=== PATIENT | female | born 1970 | race Caucasian/White ===

== ENCOUNTER → 2016-09-06 | Outpatient (CLI) | payer MEDICARE, OTHER ==
[2016-09-06 11:52] LABS: Anion Gap 12 mmol/L; Blood Urea Nitrogen 15 mg/dL (7-17); Carbon Dioxide 25 mmol/L (22-30); Chloride 107 mmol/L (98-107); Glucose 88 mg/dL (74-99); Non-African American GFR(MDRD) >60 (>60 ml/min/1.73 sqM); Potassium 4.4 mmol/L (3.5-5.1); Sodium 144 mmol/L (137-145)
[2016-09-06 11:54] LABS: Rheumatoid Factor, Qnt <9 IU/mL (<12)
[2016-09-07 12:58] LABS: HLA B27 NEGATIVE; HLA B27 Comment SEEBELOW
== END | disposition home or self-care (01) ==
LOC: LABWHC1 11:07
PROVIDERS: ATTEND Psychiatry & Neurology Neurology
DX: M25.50 Pain in unspecified joint (principal); M79.1 Myalgia; G25.81 Restless legs syndrome
CPT/HCPCS: 36415; 80048; 82728; 85652; 86038; 86431; 86812

== ENCOUNTER → 2017-01-31 | Outpatient (CLI) | payer MEDICARE ==
[2017-01-31 08:21] LABS: Basophils % (A) 1 %; CH 32.6; CHCM 34.8; Eosinophils # (A) 0.2 k/uL (0-0.7); Eosinophils % (A) 3 %; HCT 38.7 % (34.0-46.0); HDW 2.75; HGB 13.1 gm/dL (11.4-16.0); Luc # (Auto) 0.18; Luc % (Auto) 3; Lymphocytes # (A) 2.1 k/uL (1.0-4.8); Lymphocytes % (A) 32 %; MCH 31.9 pg (25.0-35.0); MCHC 33.9 g/dL (31.0-37.0); MCV 94.3 fL (80.0-100.0); Mean Platelet Volume 7.4; Monocytes # (A) 0.4 k/uL (0-1.0); Monocytes % (A) 7 %; Neutrophils # (A) 3.6 k/uL (1.3-7.7); Neutrophils % (A) 55 %; RDW 14.6 % (11.5-15.5); WBC 6.5 k/uL (3.8-10.6)
[2017-01-31 09:10] LABS: AST 27 U/L (14-36); Calcium 9.2 mg/dL (8.4-10.2); Chloride 106 mmol/L (98-107); Non-African American GFR(MDRD) >60 (>60 ml/min/1.73 sqM); Sodium 141 mmol/L (137-145); Total Bilirubin 0.3 mg/dL (0.2-1.3); Total Protein 6.8 g/dL (6.3-8.2)
[2017-01-31 09:16] LABS: ALT 42 U/L (9-52); Alkaline Phosphatase 76 U/L (38-126); Anion Gap 9 mmol/L; Blood Urea Nitrogen 10 mg/dL (7-17); Carbon Dioxide 26 mmol/L (22-30); Glucose 96 mg/dL (74-99)
[2017-01-31 10:01] LABS: Vitamin B12 923 pg/mL (239-931)
[2017-01-31 15:28] LABS: Estradiol <11.8 pg/mL
== END | disposition home or self-care (01) ==
LOC: LABWHC1 08:02
PROVIDERS: ATTEND Internal Medicine Endocrinology, Diabetes & Metabolism
DX: E55.9 Vitamin D deficiency, unspecified (principal); R53.83 Other fatigue; R41.3 Other amnesia; D35.2 Benign neoplasm of pituitary gland
CPT/HCPCS: 36415; 80053; 82306; 82607; 82670; 83001; 83002; 84146; 84403; 84439; 84443; 84481; 85025

== ENCOUNTER → 2017-06-06 | Outpatient (CLI) | payer MEDICARE ==
[2017-06-06 10:29] LABS: T4, Free (Free Thyroxine) 0.96 ng/dL (0.78-2.19)
== END | disposition home or self-care (01) ==
LOC: LABWHC1 09:26
PROVIDERS: ATTEND Internal Medicine Endocrinology, Diabetes & Metabolism
DX: D35.2 Benign neoplasm of pituitary gland (principal)
CPT/HCPCS: 36415; 84439; 84443; 84481

== ENCOUNTER → 2017-08-09 | Outpatient (CLI) | payer MEDICARE, OTHER ==
[2017-08-09 13:34] LABS: Blood Urea Nitrogen 15 mg/dL (7-17)
--- NOTE | 2017-08-09 14:57 | MR ---
EXAMINATION TYPE: MR lumbar spine wo con DATE OF EXAM: 08/09/2017 2:38 PM COMPARISON: 11/25/2014 HISTORY: Low back pain Multiplanar, MultiSpin echo imaging of the lumbar spine was performed. L1-L2: Normal disc appearance without desiccation. No herniation, protrusion or disc bulging. No ca nal stenosis is present. Foramina are patent bilaterally. L2-L3: Normal disc appearance without desiccation. No herniation, protrusion or disc bulging. No ca nal stenosis is present. Foramina are patent bilaterally. L3-L4: Normal disc appearance without desiccation. No herniation, protrusion or disc bulging. No ca nal stenosis is present. Foramina are patent bilaterally. L4-L5: Mild degenerative disc disease with decreased signal and loss of height noted of the L4-5 disc . Mild posterior disc bulge mildly effaces the ventral thecal sac. No evidence for central stenosis. Suspect left lateral recess stenosis. Grade 1 anterolisthesis L4 and L5 measuring 3 mm. Facet joint a rthropathy. L5-S1: Mild disc desiccation. Posterocentral disc bulge. No disc herniation or central stenosis. No lateral recess stenosis. Foramina are patent. Lumbar segments are intact. No paraspinal masses are identified. Conus medullaris has a normal appe arance. IMPRESSION: 1. Degenerative disc disease as discussed. 2. Disc bulging L4-5 and L5-S1. Suspect left lateral recess stenosis at L4-5. 3. Grade 1 anterolisthesis L4 and L5 represents a new finding.
--- NOTE | 2017-08-09 15:48 | MR ---
EXAMINATION TYPE: MR brain wo/w con DATE OF EXAM: 08/09/2017 COMPARISON: Prior MRI brain March 11, 2016. HISTORY: R90.82 White matter changes TECHNIQUE: Multiplanar, multisequence images of the brain and brainstem is performed without and with IV contras t, utilizing 7 mL intravenous Gadavist gadolinium contrast is administered intravenously. Demyelinat ing disease protocol with additional Sagittal Flair sequence performed. FINDINGS: Exam is noted suboptimal due to motion artifact degradation. T2 Lesions Present : Yes Approximate Number of Lesions: Approximately 10 scattered small Locations Identified : Scattered small Size of Reference Lesion(s): 1. 0.5 cm x 0.4 cm x 0.4 cm on axial image 15 and sagittal image 11 left frontal subcortical lesion stable Enhancing Lesion(s) Present: No Change from Prior: Stable Diffusion weighted images demonstrate no evidence of a recent infarct or other diffusion abnormality. There is no worrisome extra-axial fluid collection. The ventricular system and cisternal spaces ar e normal in size and appearance. The brain volume is age appropriate. Midline structures demonstrate normal morphology. The craniocervical junction appears within normal limits. Post contrast images demonstrate no abnormal enhancement. The dural venous sinuses appear pa tent. The visualized sinuses are clear and the globes are intact. IMPRESSION: Mild nonspecific white matter changes redemonstrated. No significant interval change. No new or enhancing lesions are seen.
== END | disposition home or self-care (01) ==
LOC: RADMRIMAIN 13:00
PROVIDERS: ATTEND Psychiatry & Neurology Neurology
DX: M51.27 Other intervertebral disc displacement, lumbosacral region (principal); M51.36 Other intervertebral disc degeneration, lumbar region; M43.16 Spondylolisthesis, lumbar region; R90.82 White matter disease, unspecified; Z88.5 Allergy status to narcotic agent
CPT/HCPCS: 82565; 84520; 70553; 72148; 36415; A9581

== ENCOUNTER → 2017-09-27 | Outpatient (CLI) | payer MEDICARE, OTHER | END | disposition home or self-care (01) | LOC: LABWHC1 09:08 | PROVIDERS: ATTEND Nurse Practitioner Acute Care | DX: I49.9 Cardiac arrhythmia, unspecified (principal) | CPT/HCPCS: 93005 ==

== ENCOUNTER → 2018-04-18 | Outpatient (CLI) | payer MEDICARE, OTHER ==
--- NOTE | 2018-04-18 08:53 | US ---
EXAMINATION TYPE: US abdomen complete DATE OF EXAM: 04/18/2018 COMPARISON: US gallbladder 06/04/2014, CT abdomen pelvis 06/04/2014 CLINICAL HISTORY: R14.0 Bloating, K21.9 GERD. bloating, epigastric pain EXAM MEASUREMENTS: Liver Length: 15.4 cm Gallbladder Wall: 0.2 cm CBD: 0.4 cm Spleen: 9.0 cm Right Kidney: 11.5 x 5.1 x 3.9 cm Left Kidney: 10.7 x 4.8 x 5.0 cm Pancreas: wnl Liver: oval, hypoechoic, solid, focal mass in left lobe = 3.7 x 2.8 x 3.2cm with minimal internal va scularity and as previously seen on CT and US; liver shows somewhat coarse echotexture similar to rolando or exam Gallbladder: wnl Evidence for sonographic Bzazi's sign: no CBD: wnl Spleen: wnl Right Kidney: wnl Left Kidney: wnl Upper IVC: wnl Abd Aorta: size is wnl; intimal wall thickening is noted distally Cortical medullary differentiation maintained within the kidneys. There is no ascites. There may be u nderlying hepatic steatosis. Liver lesion thought likely to represent hemangioma. IMPRESSION: Stable left lobe liver lesion.
== END | disposition home or self-care (01) ==
LOC: RADUSWWP 06:59
PROVIDERS: ATTEND Family Medicine
DX: K76.9 Liver disease, unspecified (principal)
CPT/HCPCS: 76700

== ENCOUNTER → 2018-07-04 | Outpatient (CLI) | payer MEDICARE, OTHER | END | disposition home or self-care (01) | LOC: LABWHC1 09:03 | PROVIDERS: ATTEND Nurse Practitioner Acute Care | DX: Z01.812 Encounter for preprocedural laboratory examination (principal) | CPT/HCPCS: 36415; 82565; 84520 ==

== ENCOUNTER → 2018-07-13 | Outpatient (CLI) | payer MEDICARE, OTHER ==
--- NOTE | 2018-07-13 13:02 | MR ---
EXAMINATION TYPE: MR brain wo/w con DATE OF EXAM: 07/13/2018 COMPARISON: MRI brain August 09, 2017 HISTORY: White matter changes TECHNIQUE: Multiplanar, multisequence images of the brain and brainstem is performed without and with IV contras t, utilizing 7 mL intravenous Gadavist gadolinium contrast is administered intravenously. Demyelinat ing disease protocol with additional Sagittal Flair sequence performed. FINDINGS: T2 Lesions Present : Yes Approximate Number of Lesions: Approximately 15-20 small lesions Locations Identified : Scattered Size of Reference Lesion(s): 1. 6 x 4 x 4 mm lesion axial image 16 and sagittal image 14 inferior left frontal deep white matter s lightly more prominent in appearance. Enhancing Lesion(s) Present: No Change from Prior: Increase in number Diffusion weighted images demonstrate no evidence of a recent infarct or other diffusion abnormality. There is no worrisome extra-axial fluid collection. The ventricular system and cisternal spaces ar e normal in size and appearance. The brain volume is age appropriate. Midline structures demonstrate normal morphology. The craniocervical junction appears within normal limits. Post contrast images demonstrate no abnormal enhancement. The dural venous sinuses appear pa tent. The visualized sinuses are clear and the globes are intact. IMPRESSION: Mild to moderate nonspecific white matter changes appear to have show interval progressio n from recent MRI in size and number. No enhancing lesions are evident.
== END ==
LOC: RADMRIMAIN 11:29
PROVIDERS: ATTEND Psychiatry & Neurology Neurology
DX: R90.89 Other abnormal findings on diagnostic imaging of central nervous system (principal)
CPT/HCPCS: 70553

== ENCOUNTER → 2018-07-13 | Outpatient (CLI) | payer MEDICARE, OTHER ==
--- NOTE | 2018-07-13 13:06 | MR ---
EXAMINATION TYPE: MR pituitary wo/w con DATE OF EXAM: 07/13/2018 COMPARISON: Pituitary MRI December 15, 2015 HISTORY: Disorder of pituitary gland, unspecified TECHNIQUE: Multiplanar, multisequence images of the pituitary gland is performed without and with IV contrast, u tilizing 7 mL intravenous Gadavist . FINDINGS: Pituitary gland is normal in size within sella turcica. Pituitary stalk redemonstrates norm al enhancement in the midline suprasellar level. There is persistent round area of nonenhancement ant erior aspect of the pituitary gland with some T1 and T2 hyperintensity measuring 5 mm AP diameter by 4 mm craniocaudal diameter by 4 mm transversely sagittal image 10 and coronal image 8 not significant ly changed in size or appearance from prior MRI. Suprasellar cistern is maintained. Optic chiasm is n ot effaced. IMPRESSION: Stable 4 mm area of nonenhancement could reflect microadenoma, Rathke cleft cyst, or smal l teratoma/lipoma. No significant change from prior pituitary MRI.
== END | disposition home or self-care (01) ==
LOC: RADMRIMAIN 11:26
DX: E23.7 Disorder of pituitary gland, unspecified (principal)
CPT/HCPCS: 70553; A9585

== ENCOUNTER → 2019-06-18 | Outpatient (CLI) | payer MEDICARE, OTHER ==
[2019-06-18 09:29] LABS: Basophils % (A) 1 %; Eosinophils # (A) 0.2 k/uL (0-0.7); Eosinophils % (A) 3 %; HCT 37.8 % (34.0-46.0); HGB 12.6 gm/dL (11.4-16.0); Lymphocytes # (A) 1.4 k/uL (1.0-4.8); Lymphocytes % (A) 27 %; MCHC 33.2 g/dL (31.0-37.0); MCV 93.4 fL (80.0-100.0); Mean Platelet Volume 7.1; Monocytes # (A) 0.2 k/uL (0-1.0); Monocytes % (A) 5 %; Neutrophils # (A) 3.3 k/uL (1.3-7.7); Neutrophils % (A) 63 %; Platelet Count 361 k/uL (150-450); RBC 4.05 m/uL (3.80-5.40); RDW 13.9 % (11.5-15.5); WBC 5.2 k/uL (3.8-10.6)
[2019-06-18 11:45] LABS: Erythrocyte Sedimentation Rate 8 mm/hr (0-20)
[2019-06-18 17:31] LABS: Prolactin 6.3 ng/mL (2.8-29.2)
[2019-06-18 17:41] LABS: ALT 18 U/L (8-44); AST 18 U/L (13-35); African American GFR (CKD) 119.6 (60.0-200.0); Albumin/Globulin Ratio 2.87 (1.60-3.17); Alkaline Phosphatase 73 U/L (41-126); BUN/Creat Ratio 17.14 Ratio (12.00-20.00); C Reactive Protein <0.4 mg/dL (0.0-0.8); Calcium 8.7 mg/dL (8.7-10.3); Carbon Dioxide 24.4 mmol/L (21.6-31.8); Chloride 110 mmol/L (96-109); Creatine Kinase 142 U/L (26-186); Globulin 1.5 g/dL (1.6-3.3); Glucose 164 mg/dL (70-110); Non-African American GFR(CKD) 103.2 (60.0-200.0); Potassium 4.3 mmol/L (3.5-5.5); Rheumatoid Factor, Qnt 7 IU/mL (0-15); Sodium 140 mmol/L (135-145); Total Bilirubin 0.1 mg/dL (0.3-1.2); Total Protein 5.8 g/dL (6.2-8.2)
== END | disposition home or self-care (01) ==
LOC: LABWHC1 09:03
PROVIDERS: ATTEND Internal Medicine Endocrinology, Diabetes & Metabolism
DX: D35.2 Benign neoplasm of pituitary gland (principal); R51 Headache
CPT/HCPCS: 36415; 80053; 82024; 82085; 82533; 82550; 84146; 84439; 84443; 85025; 85652; 86038; 86140; 86431

== ENCOUNTER → 2021-03-18 | Outpatient (CLI) | payer MEDICARE ==
[2021-03-19 04:53] LABS: Prolactin 6.8 ng/mL (2.800-29.200); T4, Free (Free Thyroxine) 0.92 ng/dL (0.800-1.800)
== END | disposition home or self-care (01) ==
LOC: LABWHC1 11:55
PROVIDERS: ATTEND Internal Medicine Endocrinology, Diabetes & Metabolism
DX: D35.2 Benign neoplasm of pituitary gland (principal)
CPT/HCPCS: 36415; 82024; 82533; 84146; 84439; 84443

== ENCOUNTER 2021-03-31 08:31 | Observation (INO) | payer MEDICARE ==
[2021-03-31] MEDS ORDERED: SODIUM CHLORIDE 0.9% 1,000 ML IV STA (08:35)
[2021-03-31] MEDS ORDERED: SODIUM CHLORIDE 0.9% 500 ML 500 ML IV STA (08:35)
[2021-03-31 09:05] LABS: Basophils % (A) 0 %; Eosinophils # (A) 0.1 k/uL (0-0.7); Eosinophils % (A) 1 %; HCT 27.6 % (34.0-46.0); HGB 9.5 gm/dL (11.4-16.0); Lymphocytes # (A) 1.8 k/uL (1.0-4.8); Lymphocytes % (A) 20 %; MCH 32.8 pg (25.0-35.0); MCHC 34.3 g/dL (31.0-37.0); MCV 95.4 fL (80.0-100.0); Mean Platelet Volume 7.2; Monocytes # (A) 0.3 k/uL (0-1.0); Monocytes % (A) 4 %; Neutrophils # (A) 6.8 k/uL (1.3-7.7); Neutrophils % (A) 74 %; Platelet Count 382 k/uL (150-450); RDW 13.7 % (11.5-15.5); WBC 9.1 k/uL (3.8-10.6)
--- NOTE | 2021-03-31 09:14 | ED ---
General Adult HPI - General Chief complaint: GI Bleed Stated complaint: Abd pain Time Seen by Provider: 03/31/21 08:35 Source: patient, EMS, RN notes reviewed, old records reviewed Mode of arrival: EMS - History of Present Illness Initial comments: This is a 50-year-old female who states at 2:00 this morning she got up she was very lightheaded and felt like she was going to pass out and fell but did not get hurt. Patient states she did vomit up some dark brown emesis. Patient also states she's been having black stools. Patient states she was very lightheaded today so she called EMS. When EMS arrived her blood pressure was a little low and she was lightheaded. Patient denies chest pain patient states she was having some difficulty breathing when she was up but not lying in bed. Patient states she's also extremely cold. Patient denies any abdominal pain patient d enies any chest pain. - Related Data Home Medications Medication Instructions Recorded Confirmed Baclofen [Lioresal] 10 mg PO BID 06/04/14 06/04/14 Citalopram Hydrobromide 40 mg PO DAILY 06/04/14 06/04/14 [Citalopram HBr] Gabapentin 800 mg PO TID 06/04/14 06/04/14 Hydrocodone/Acetaminophen [[place] 1 each PO TID 06/04/14 06/04/14 10-325] Meloxicam 15 mg PO DAILY 06/04/14 06/04/14 traMADol HCl [Ultram] 50 mg PO TID 06/04/14 06/04/14 Previous Rx's Medication Instructions Recorded Pantoprazole Sodium [Protonix] 20 mg PO BID #30 tab 06/04/14 Allergies Allergy/AdvReac Type Severity Reaction Status Date / Time methadone Allergy Rash/Hives Verified 06/04/14 19:15 Review of Systems ROS Statement: Those systems with pertinent positive or pertinent negative responses have been documented in the HPI. ROS Other: All systems not noted in ROS Statement are negative. Past Medical History Past Medical History: Fibromyalgia, Hypertension Additional Past Medical History / Comment(s): back pain, glaucoma History of Any Multi-Drug Resistant Organisms: None Reported Additional Past Surgical History / Comment(s): hip surgery Past Psychological History: Anxiety, Depression Smoking Status: Current every day smoker Past Alcohol Use History: None Reported Past Drug Use History: None Reported General Exam - General Exam Comments Initial Comments: GENERAL: Patient is well-developed and well-nourished. Patient is nontoxic and well- hydrated and is in mild distress. ENT: Neck is soft and supple. No significant lymphadenopathy is noted. Oropharynx is clear. Moist mucous membranes. Neck has full range of motion without elic iting any pain. EYES: The sclera were anicteric and conjunctiva were pink and moist. Extraocular movements were intact and pupils were equal round and reactive to light. Eyelids were unremarkable. PULMONARY: Unlabored respirations. Good breath sounds bilaterally. No audible rales rhonchi or wheezing was noted. CARDIOVASCULAR: There is a regular rate and rhythm without any murmurs gallops or rubs. ABDOMEN: Soft and nontender with normal bowel sounds. SKIN: Skin is pale. Capillary refill is poor. NEUROLOGIC: Patient is alert and oriented x3. Cranial nerves II through XII are grossly intact. Motor and sensory are also intact. Normal speech, volume and content. Symmetrical smile. MUSCULOSKELETAL: Normal extremities with adequate strength and full range of motion. LYMPHATICS: No significant lymphadenopathy is noted PSYCHIATRIC: Normal psychiatric evaluation. Course Vital Signs 03/31/21 08:32 Temperature 98.3 F Pulse Rate 83 Respiratory 24 Rate Blood Pressure 113/63 O2 Sat by Pulse 100 Oximetry Medical Decision Making - Medical Decision Making I spoke with Dr. Mcdonald he agreed to admit the patient admitted the patient wrote admitting orders. I consulted Dr. Lin - Lab Data Result diagrams: 03/31/21 08:44 03/31/21 08:44 Lab Results 03/31/21 03/31/21 03/31/21 Range/Units 08:44 08:44 08:44 WBC 9.1 (3.8-10.6) k/uL RBC 2.90 L (3.80-5.40) m/uL Hgb 9.5 L (11.4-16.0) gm/dL Hct 27.6 L (34.0-46.0) % MCV 95.4 (80.0-100.0) fL MCH 32.8 (25.0-35.0) pg MCHC 34.3 (31.0-37.0) g/dL RDW 13.7 (11.5-15.5) % Plt Count 382 (150-450) k/uL MPV 7.2 Neutrophils % 74 % Lymphocytes % 20 % Monocytes % 4 % Eosinophils % 1 % Basophils % 0 % Neutrophils # 6.8 (1.3-7.7) k/uL Lymphocytes # 1.8 (1.0-4.8) k/uL Monocytes # 0.3 (0-1.0) k/uL Eosinophils # 0.1 (0-0.7) k/uL Basophils # 0.0 (0-0.2) k/uL PT 11.3 (9.0-12.0) sec INR 1.1 (<1.2) APTT 19.3 L (22.0-30.0) sec Sodium 139 (137-145) mmol/L Potassium 4.4 (3.5-5.1) mmol/L Chloride 112 H (98-107) mmol/L Carbon Dioxide 24 (22-30) mmol/L Anion Gap 3 mmol/L BUN 33 H (7-17) mg/dL Creatinine 0.46 L (0.52-1.04) mg/dL Est GFR (CKD-EPI)AfAm >90 (>60 ml/min/1.73 sqM) Est GFR (CKD-EPI)NonAf >90 (>60 ml/min/1.73 sqM) Glucose 131 H (74-99) mg/dL Plasma Lactic Acid Veto (0.7-2.0) mmol/L Calcium 8.5 (8.4-10.2) mg/dL Magnesium 1.8 (1.6-2.3) mg/dL Total Bilirubin 0.4 (0.2-1.3) mg/dL AST 21 (14-36) U/L ALT 18 (4-34) U/L Alkaline Phosphatase 42 (38-126) U/L Troponin I (0.000-0.034) ng/mL Total Protein 5.2 L (6.3-8.2) g/dL Albumin 3.0 L (3.5-5.0) g/dL Lipase 87 (23-300) U/L Blood Type Blood Type Recheck Bld Type Recheck Status Spec Expiration Date 03/31/21 03/31/21 03/31/21 Range/Units 08:44 08:44 08:44 WBC (3.8-10.6) k/uL RBC (3.80-5.40) m/uL Hgb (11.4-16.0) gm/dL Hct (34.0-46.0) % MCV (80.0-100.0) fL MCH (25.0-35.0) pg MCHC (31.0-37.0) g/dL RDW (11.5-15.5) % Plt Count (150-450) k/uL MPV Neutrophils % % Lymphocytes % % Monocytes % % Eosinophils % % Basophils % % Neutrophils # (1.3-7.7) k/uL Lymphocytes # (1.0-4.8) k/uL Monocytes # (0-1.0) k/uL Eosinophils # (0-0.7) k/uL Basophils # (0-0.2) k/uL PT (9.0-12.0) sec INR (<1.2) APTT (22.0-30.0) sec Sodium (137-145) mmol/L Potassium (3.5-5.1) mmol/L Chloride (98-107) mmol/L Carbon Dioxide (22-30) mmol/L Anion Gap mmol/L BUN (7-17) mg/dL Creatinine (0.52-1.04) mg/dL Est GFR (CKD-EPI)AfAm (>60 ml/min/1.73 sqM) Est GFR (CKD-EPI)NonAf (>60 ml/min/1.73 sqM) Glucose (74-99) mg/dL Plasma Lactic Acid Veto 1.2 (0.7-2.0) mmol/L Calcium (8.4-10.2) mg/dL Magnesium (1.6-2.3) mg/dL Total Bilirubin (0.2-1.3) mg/dL AST (14-36) U/L ALT (4-34) U/L Alkaline Phosphatase (38-126) U/L Troponin I <0.012 (0.000-0.034) ng/mL Total Protein (6.3-8.2) g/dL Albumin (3.5-5.0) g/dL Lipase (23-300) U/L Blood Type A Positive Blood Type Recheck A Pos Bld Type Recheck Status No Spec Expiration Date 04/03/20212343 Disposition Clinical Impression: GI bleed Disposition: ADMITTED IP TO THIS HOSP Referrals: Ky Mcdonald DO [Primary Care Provider] - 1-2 days Time of Disposition: 10:12
[2021-03-31 09:28] LABS: ALT 18 U/L (4-34); AST 21 U/L (14-36); African American GFR (CKD) >90 (>60 ml/min/1.73 sqM); Alkaline Phosphatase 42 U/L (38-126); Anion Gap 3 mmol/L; Blood Urea Nitrogen 33 mg/dL (7-17); Calcium 8.5 mg/dL (8.4-10.2); Carbon Dioxide 24 mmol/L (22-30); Chloride 112 mmol/L (98-107); Glucose 131 mg/dL (74-99); Lipase 87 U/L (23-300); Magnesium 1.8 mg/dL (1.6-2.3); Non-African American GFR(CKD) >90 (>60 ml/min/1.73 sqM); Potassium 4.4 mmol/L (3.5-5.1); Sodium 139 mmol/L (137-145); Total Bilirubin 0.4 mg/dL (0.2-1.3); Total Protein 5.2 g/dL (6.3-8.2)
[2021-03-31 09:35] LABS: INR 1.1 (<1.2); Prothrombin Time 11.3 sec (9.0-12.0)
[2021-03-31 09:42] LABS: Partial Thromboplastin Time 19.3 sec (22.0-30.0)
[2021-03-31] MEDS ORDERED: SODIUM CHLORIDE 0.9% 1,000 ML IV ONE (10:12)
--- NOTE | 2021-03-31 13:43 | P.CONS ---
History of Present Illness - Reason for Consult Consult date: 03/31/21 GI bleed, anemia Requesting physician: Jer Mosqueda - Chief Complaint dizziness, coffe ground emesis - History of Present Illness This is a 50-year-old female who presented to the emergency department today after waking up early this morning with some abdominal pain nausea followed by vomiting. Patient a past medical history of anxiety, depression, fibromyalgia, hypertension, chronic pain, and smoker. Patient states she vomited 3-4 times which was dark brown and also states she had diarrhea which began yesterday evening which she states was black. Shunt denies any previous history of GI bleed or peptic ulcer disease. Patient states she has had a previous EGD done by Dr. Slaughter for abdominal bloating following eating. States that she did have some retained food and possible gastritis. She does take meloxicam and Excedrin daily., WBC 9.1 hemoglobin 9.5 hematocrit 27.6 platelet count 382,000, INR 1.1. LFTs unremarkable. Patient has not had any further nausea or vomiting since admission to the emergency room. In states dizziness has subsided and that she's been up to the bathroom with a steady gait. Review of Systems REVIEW OF SYSTEMS: CARDIOPULMONARY: No chest pain or shortness of breath. Gastrointestinal: Abdominal pain this morning none currently followed by nausea with vomiting 3-4 episodes. Patient states she had dark brown emesis and 4-5 loose stools since yesterday which she states was black. GENITOURINARY: No dysuria or hematuria. MUSCULOSKELETAL: Reports normal range of motion., Joint pain. SKIN: No rashes. No jaundice. ENDOCRINE: No chills, fevers. No excessive weight gain or loss. No polydipsia or polyuria. PSYCHIATRIC: Unremarkable. NEUROLOGY: No change in mental status. Denies headache. Had some dizziness this morning. ENT: Vision unremarkable. CONSTITUTIONAL: No recent weight loss. No fever, chills, night sweats. Past Medical History Past Medical History: Fibromyalgia, Hypertension Additional Past Medical History / Comment(s): back pain, glaucoma History of Any Multi-Drug Resistant Organisms: None Reported Additional Past Surgical History / Comment(s): hip surgery Past Psychological History: Anxiety, Depression Smoking Status: Current every day smoker Past Alcohol Use History: None Reported Past Drug Use History: None Reported Medications and Allergies Home Medications Medication Instructions Recorded Confirmed Type Baclofen [Lioresal] 10 mg PO TID 06/04/14 03/31/21 History Citalopram Hydrobromide 40 mg PO DIRECTED@209906/04/14 03/31/21 History [Citalopram HBr] Meloxicam 7.5 mg PO DIRECTED@209906/04/14 03/31/21 History Ascorbic Acid/Elderberry Fruit 1 tab PO DAILY 03/31/21 03/31/21 History [Elderberry-Vit C 50-100 mg Chw] [id number] [id number] 1 tab PO DAILY PRN 03/31/21 03/31/21 History [Excedrin] Atorvastatin Calcium [Lipitor] 10 mg PO HS 03/31/21 03/31/21 History Metoprolol Succinate [Toprol XL] 25 mg PO HS 03/31/21 03/31/21 History Multivitamins, Thera [Multivitamin 1 tab PO DAILY 03/31/21 03/31/21 History (formulary)] Pregabalin [Lyrica] 150 mg PO DIRECTED@03/31/21 03/31/21 History oxyCODONE-APAP 7.5-325MG [Percocet 1 tab PO TID PRN 03/31/21 03/31/21 History 7.5-325 mg] Allergies Allergy/AdvReac Type Severity Reaction Status Date / Time methadone Allergy Rash/Hives Verified 06/04/14 19:15 Physical Exam Vitals: Vital Signs Temp Pulse Resp BP Pulse Ox 03/31/21 12:03 98.8 F 79 20 120/79 100 03/31/21 08:32 98.3 F 83 24 113/63 100 Intake and Output 03/30/21 03/31/21 03/31/21 22:59 06:59 14:59 Other: # Voids 1 Weight 68.039 kg General appearance: The patient is alert, oriented, appears in no acute distress. HET: Head is normocephalic and atraumatic. Conjunctiva pink. Sclera anicteric. Neck: Supple without lymphadenopathy. Trachea midline. Heart: S1 S2. Regular rate and rhythm. Lungs: Clear to auscultation. Abdomen: Soft, nontender, nondistended with bowel sounds. No guarding or rigidity. Skin: No rashes. No jaundice. Extremities: Normal skin color and turgor. No pedal edema. Neurological: No focal deficits. Alert and oriented x3. Results CBC & Chem 7: 03/31/21 08:44 03/31/21 08:44 Labs: Abnormal Lab Results - Last 24 Hours (Table) 03/31/21 03/31/21 03/31/21 Range/Units 08:44 08:44 08:44 RBC 2.90 L (3.80-5.40) m/uL Hgb 9.5 L (11.4-16.0) gm/dL Hct 27.6 L (34.0-46.0) % APTT 19.3 L (22.0-30.0) sec Chloride 112 H (98-107) mmol/L BUN 33 H (7-17) mg/dL Creatinine 0.46 L (0.52-1.04) mg/dL Glucose 131 H (74-99) mg/dL Total Protein 5.2 L (6.3-8.2) g/dL Albumin 3.0 L (3.5-5.0) g/dL Assessment and Plan (1) GI bleed Narrative/Plan: A 50-year-old female who presented to the hospital with complaints of dizziness following 3-4 episodes of nausea and vomiting as well as fortified episodes of diarrhea. Patient states diarrhea was black and her emesis was a dark brown. She was noted to have a hemoglobin of 9.5 on admission with no previous history of anemia. Patient denies any previous history of peptic ulcer disease or GI bl eed. She's not on any anticoagulation however she does take meloxicam as well as Excedrin daily. Patient has a history of fibromyalgia chronic pain syndrome as well as previous history of abdominal pain and bloating. Patient has undergone EGD in the past with Dr. Carter 3-4 years ago which she states was significant for some mild gastritis and some retained food. She denies any frequent acid reflux or heartburn. Plan is for EGD tomorrow. Possible etiologies include gastritis, esophagitis, peptic ulcer disease or other possible etiologies. Current Visit: Yes Status: Acute Code(s): K92.2 - GASTROINTESTINAL HEMO RRHAGE, UNSPECIFIED SNOMED Code(s): 06568569 (2) Anemia Current Visit: Yes Status: Acute Code(s): D64.9 - ANEMIA, UNSPECIFIED SNOMED Code(s): 532541402 Plan: 1. Continue symptomatic and supportive care 2. Patient may have clear liquid diet, nothing by mouth after midnight 3. Protonix 40 mg IV twice a day 4. Hold NSAIDs 5. Will proceed with EGD tomorrow. Procedure discussed with patient including risks and benefits, patient willing to proceed. 6. Daily CBC, transfuse for hemoglobin less than 7 Thank you for this consultation, we will continue to follow. Dr. Janki Lin I agree with the dictator's note, documented as a scribe by Latisha Kohli.
[2021-03-31] MEDS: PANTOPRAZOLE 40 MG/10 ML VIAL IVP SCH ×2 (14:14→20:30)
[2021-03-31 14:32] LABS: Basophils % (A) 0 %; Eosinophils % (A) 0 %; HCT 23.7 % (34.0-46.0); Lymphocytes # (A) 1.9 k/uL (1.0-4.8); Lymphocytes % (A) 17 %; MCH 32.1 pg (25.0-35.0); MCHC 33.6 g/dL (31.0-37.0); MCV 95.6 fL (80.0-100.0); Mean Platelet Volume 7.3; Monocytes # (A) 0.3 k/uL (0-1.0); Monocytes % (A) 3 %; Neutrophils # (A) 9.1 k/uL (1.3-7.7); Neutrophils % (A) 79 %; Platelet Count 329 k/uL (150-450); RBC 2.48 m/uL (3.80-5.40); RDW 13.7 % (11.5-15.5); WBC 11.5 k/uL (3.8-10.6)
[2021-03-31] MEDS ORDERED: ASPIRIN-ACET-CAFF 250-250-65MG 1 EACH TAB PO PRN (19:32)
[2021-03-31] MEDS: oxyCODONE-APAP 7.5-325MG 1 EACH TAB PO PRN (20:31)
[2021-03-31] MEDS: PREGABALIN 75 MG CAP PO SCH (20:31)
[2021-03-31] MEDS: BACLOFEN 10 MG TAB PO SCH (20:32)
[2021-03-31] MEDS ORDERED: ATORVASTATIN 10 MG TAB PO SCH (21:00)
[2021-03-31] MEDS ORDERED: CITALOPRAM HYDROBROMIDE 20 MG TAB PO SCH (21:00)
[2021-03-31] MEDS ORDERED: METOPROLOL SUCCINATE (ER) 25 MG TAB.ER.24H PO SCH (21:00)
[2021-03-31] MEDS ORDERED: MELOXICAM 7.5 MG TAB PO SCH (21:00)
[2021-04-01] MEDS: PANTOPRAZOLE 40 MG/10 ML VIAL IVP SCH (08:54)
[2021-04-01] MEDS: BACLOFEN 10 MG TAB PO SCH (08:56)
[2021-04-01] MEDS ORDERED: NON FORMULARY DRUG (Ascorbic Acid/Elderberry Fruit [Elderberry-Vit C 50-100 Mg Chw] 1 EACH PO SCH (09:00)
[2021-04-01] MEDS ORDERED: MULTIVITAMINS, THERA 1 EACH TAB PO SCH (09:00)
[2021-04-01] MEDS ORDERED: PROPOFOL 10 MG/ML 20 ML VIAL IV ONE (09:00)
[2021-04-01] MEDS ORDERED: IV FLUID CONTINUATION 1,000 ML IV ONE ×2 (09:03)
--- NOTE | 2021-04-01 09:13 | P.PCN ---
Date of Procedure: 04/01/21 Procedure(s) Performed: BRIEF HISTORY: Patient is a 50-year-old, pleasant, female admitted hospital with epigastric pain associated with nausea vomiting and coffee-ground emesis. She also has problems episodes of black tarry stools. Hemoglobin was 9 g/dL. She is scheduled for an upper endoscopy to evaluate further PROCEDURE PERFORMED: Esophagogastroduodenoscopy with biopsy. PREOPERATIVE DIAGNOSIS: Epigastric pain and acute upper GI bleed. IV sedation per anesthesia. PROCEDURE: After informed consent was obtained, the patient was brought into the endoscopy unit. IV sedation was administered by Anesthesia under continuous monitoring. Initially the Olympus GIF-140 video endoscope was inserted into the mouth. Esophagus intubated without any difficulty. It was gradually advanced into the stomach and duodenum and carefully examined. The bulb had mild duodenitis and the second part of the duodenum appeared normal. The scope at this time was withdrawn to the stomach, adequately insufflated with air, and upon careful examination, mucosa of the antrum, had multiple scattered erosions and a 1 cm clean-based antral ulcer with no active bleeding that was biopsied. Rest of the body, cardia and the fundus appeared normal. The scope was then withdrawn into the esophagus. The GE junction was located at 39 cm from the incisors. The esophagus appeared normal. There were no erosions or ulcerations seen and the patient tolerated the procedure well. IMPRESSION: 1. 1 cm clean-based antral ulcer with no active bleeding status post biopsy. 2. Antral erosive gastritis. 2. Mild duodenitis RECOMMENDATIONS: The findings of this examination were discussed with the patient . She was advised to follow with the biopsy results. She will continue on Protonix 40 mg twice daily and avoid NSAIDs. Diet will be advanced as tolerated and she can be discharged home today.
[2021-04-01] MEDS: PREGABALIN 75 MG CAP PO SCH (09:49)
[2021-04-01] MEDS: oxyCODONE-APAP 7.5-325MG 1 EACH TAB PO PRN (09:53)
[2021-04-01 10:33] VITALS: RESP 20
[2021-04-01 10:53] VITALS: BP 103/69; PULSE 88; TEMP 98.7
[2021-04-01 11:42] LABS: HCT 20.8 % (37.2-46.3); HGB 6.9 g/dL (12.0-15.0); MCH 32.4 pg (27.0-32.0); MCHC 33.2 g/dL (32.0-37.0); MCV 97.7 fL (80.0-97.0); Mean Platelet Volume 9.2 fL (9.5-12.2); Platelet Count 275 X 10*3/uL (140-440); RBC 2.13 X 10*6/uL (4.10-5.20); RDW 14.1 % (11.5-14.5); WBC 8.75 X 10*3/uL (4.50-10.00)
--- NOTE | 2021-04-01 16:49 | P.HPIM ---
History of Present Illness H&P Date: 04/01/21 Chief Complaint: Coffee-ground emesis, tarry stools History and Physical and Discharge summary This is a 50-year-old female with past medical history of fibromyalgia, hypert ension, back pain, anxiety, depression, ongoing nicotine dependence, presented to the ER yesterday with abdominal pain, nausea vomiting of coffee-ground emesis earlier that morning, dark tarry stools. Patient takes meloxicam daily and prn Excedrin for migraines. Denies any lightheadedness, dizziness or focal deficits. Denies any chest pain, palpitations or shortness of breath. Afebrile, most recent labs reporting WBC 11.5, hemoglobin 8, platelets 329. BUN 33, creatinine 0.46. Evaluated by GI and patient is NPO,scheduled for EGD this morning. Reports no further nausea vomiting or tarry stools-no further stools since admission. Denies abdominal pain. Denies chest pain, palpitations or shortness of breath. Vital signs stable, maintaining O2 sats in the high 90s on room air. Ambulating in room, tolerating exertion well, denies lightheadedness, dizziness or focal deficits. Review of Systems ROS Statement: Those systems with pertinent positive or pertinent negative responses have been documented in the HPI. ROS Other: All systems not noted in ROS Statement are negative. Past Medical History Past Medical History: Fibromyalgia, Hypertension Additional Past Medical History / Comment(s): back pain, glaucoma History of Any Multi-Drug Resistant Organisms: None Reported Additional Past Surgical History / Comment(s): hip surgery Past Anesthesia/Blood Transfusion Reactions: No Reported Reaction Past Psychological History: Anxiety, Depression Smoking Status: Current every day smoker Past Alcohol Use History: None Reported Past Drug Use History: None Reported - Past Family History Mother Family Medical History: Hyperlipidemia, Hypertension Father Family Medical History: CVA/TIA, Hyperlipidemia, Hypertension Additional Family Medical History / Comment(s): brain aneurysm at age 32 Medications and Allergies Home Medications Medication Instructions Recorded Confirmed Type Baclofen [Lioresal] 10 mg PO TID 06/04/14 03/31/21 History Citalopram Hydrobromide 40 mg PO DIRECTED@2100 06/04/14 03/31/21 History [Citalopram HBr] Ascorbic Acid/Elderberry Fruit 1 tab PO DAILY 03/31/21 03/31/21 History [Elderberry-Vit C 50-100 mg Chw] Swaghen-Ylak-Uwgu [id number] 1 tab PO DAILY PRN 03/31/21 03/31/21 History [Excedrin] Atorvastatin Calcium [Lipitor] 10 mg PO HS 03/31/21 03/31/21 History Metoprolol Succinate [Toprol XL] 25 mg PO HS 03/31/21 03/31/21 History Multivitamins, Thera [Multivitamin 1 tab PO DAILY 03/31/21 03/31/21 History (formulary)] Pregabalin [Lyrica] 150 mg PO DIRECTED@03/31/21 03/31/21 History oxyCODONE-APAP 7.5-325MG [Percocet 1 tab PO TID PRN 03/31/21 03/31/21 History 7.5-325 mg] Pantoprazole Sodium [Protonix] 40 mg PO BID #60 tab 04/01/21 Rx Allergies Allergy/AdvReac Type Severity Reaction Status Date / Time methadone Allergy Rash/Hives Verified 06/04/14 19:15 Physical Exam Vitals: Vital Signs Temp Pulse Resp BP Pulse Ox 04/01/21 10:45 98.7 F 88 20 103/69 97 04/01/21 10:25 98.2 F 84 20 101/64 99 04/01/21 10:10 98.4 F 83 19 125/76 98 04/01/21 09:44 98.1 F 83 20 107/70 98 04/01/21 07:00 98.2 F 80 20 120/75 99 04/01/21 01:54 98.1 F 85 16 106/68 96 03/31/21 19:32 98.5 F 90 137/80 100 03/31/21 17:30 16 03/31/21 17:23 99.1 F 83 16 122/76 100 Intake and Output 04/01/21 04/01/21 04/01/21 06:59 14:59 22:59 Intake Total 200 Balance 200 Intake: IV 200 Other: Voiding Method Toilet # Voids 1 PHYSICAL EXAM: VITAL SIGNS: As above GENERAL: Sitting up in bed, no acute distress HEENT: Conjunctivae normal. eyes normal. NECK: No JVD. No thyroid enlargement. No LNs CARDIOVASCULAR: S1, S2 regular.. No murmur RESPIRATION: Breath sounds diminished in the bases. No rhonchi or crackles. No bronchial breathing. ABDOMEN: Soft, nontender . No guarding. No rigidity, no masses palpable. No ascites, No hepatosplenomegaly.Bowel sounds heard. LEGS: No edema. no swelling PSYCHIATRY: Alert and oriented X3, mood and affect normal. NERVOUS SYSTEM: Cranial N 2-12 grossly normal. Moves all 4 limbs.No focal def icits. Strength and sensation grossly intact. Skin: Warm and dry, no rash Results CBC & Chem 7: 04/01/21 07:24 03/31/21 08:44 Labs: Abnormal Lab Results - Last 24 Hours (Table) 04/01/21 Range/Units 07:24 RBC 2.13 L (4.10-5.20) X 10*6/uL Hgb 6.9 L* (12.0-15.0) g/dL Hct 20.8 L (37.2-46.3) % MCV 97.7 H (80.0-97.0) fL MCH 32.4 H (27.0-32.0) pg MPV 9.2 L (9.5-12.2) fL Thrombosis Risk Factor Assmnt - Choose All That Apply Each Factor Represents 1 point: Age 41-60 years, Obesity (BMI >25) Other Risk Factors: No Thrombosis Risk Factor Assessment Total Risk Factor Score: 2 Thrombosis Risk Factor Assessment Level: Low Risk Assessment and Plan Assessment: Acute GI bleed with blood loss anemia. Status post EGD reporting 1 cm clean- based antral ulcer with no active bleeding status post biopsy, antral erosive gastritis, mild duodenitis. Fibromyalgia Hypertension Glaucoma Ongoing nicotine dependence Anxiety Depression Plan: Continue on current medication regime ,monitoring and symptomatic treatm ent. Patient has been cleared for discharge by GI, placed on Protonix 40 twice daily, avoid NSAIDs-reinforced. Repeat CBC outpatient with results to PCP. Smoking sensation reinforced. Patient will be discharged home today in a stable condition with guarded prognosis. Discharge Medication List Baclofen [Lioresal] 10 mg PO TID 06/04/14 [History] Citalopram Hydrobromide [Citalopram HBr] 40 mg PO DIRECTED@2100 06/04/14 [History] Ascorbic Acid/Elderberry Fruit [Elderberry-Vit C 50-100 mg Chw] 1 tab PO DAILY 11/16/21 [History] Atorvastatin Calcium [Lipitor] 10 mg PO HS 03/31/21 [History] Metoprolol Succinate [Toprol XL] 25 mg PO HS 03/31/21 [History] Multivitamins, Thera [Multivitamin (formulary)] 1 tab PO DAILY 03/31/21 [History] Pregabalin [Lyrica] 150 mg PO DIRECTED@03/31/21 [History] oxyCODONE-APAP 7.5-325MG [Percocet 7.5-325 mg] 1 tab PO TID PRN 03/31/21 [History] Pantoprazole Sodium [Protonix] 40 mg PO BID #60 tab 04/01/21 [Rx] The impression and plan of care has been dictated as directed. : I performed a history and examination of this patient, discussed the same with the dictator. I agree with the dictator's note ,documented as a scribe. Any additional findings or plans will be noted.
== END 2021-04-01 11:51 | disposition home or self-care (01) ==
LOC: EC 08:31 → 6NMEDSUR 10:12
PROVIDERS: ADMIT Family Medicine; ATTEND Family Medicine
DX: K25.4 Chronic or unspecified gastric ulcer with hemorrhage (principal); K29.51 Unspecified chronic gastritis with bleeding; K29.81 Duodenitis with bleeding; D62 Acute posthemorrhagic anemia; Z20.822 Contact with and (suspected) exposure to COVID-19; M79.7 Fibromyalgia; I10 Essential (primary) hypertension; G89.4 Chronic pain syndrome; M54.9 Dorsalgia, unspecified; F32.A Depression, unspecified; H40.9 Unspecified glaucoma; F41.9 Anxiety disorder, unspecified; F17.200 Nicotine dependence, unspecified, uncomplicated; E66.9 Obesity, unspecified; Z68.27 Body mass index [BMI] 27.0-27.9, adult; Z71.6 Tobacco abuse counseling; Z79.899 Other long term (current) drug therapy; Z79.1 Long term (current) use of non-steroidal anti-inflammatories (NSAID); Z79.82 Long term (current) use of aspirin; Z88.5 Allergy status to narcotic agent; Z86.69 Personal history of other diseases of the nervous system and sense organs; Z82.49 Family history of ischemic heart disease and other diseases of the circulatory system; Z82.3 Family history of stroke
CPT/HCPCS: 43239; 99285; 96376 ×2; 96361 ×3; 96374; 36415; 86900; 86901; 88305; 80053; 83605; 83690; 83735; 84484; 85025; 85027; 85610; 85730; 86850; 87635; G0378 ×2; J2704; C9113 ×2

== ENCOUNTER → 2021-05-15 | Outpatient (CLI) | payer MEDICARE ==
--- NOTE | 2021-05-18 11:38 | MM ---
Reason for exam: screening (asymptomatic). Last mammogram was performed 5 years and 4 months ago. History: Patient is postmenopausal and had first child at age 33. Physical Findings: A clinical breast exam by your physician is recommended on an annual basis and results should be correlated with mammographic findings. MG 3D Screening Mammo W/Cad Bilateral CC and MLO view(s) were taken. Prior study comparison: January 23, 2016, mammogram, performed at [facility]. January 22, 2014, mammogram, performed at [facility]. There are scattered fibroglandular densities. There are benign appearing round calcifications in the left breast. There is no discrete abnormality. ASSESSMENT: Benign, BI-RAD 2 RECOMMENDATION: Routine screening mammogram of both breasts in 1 year.
== END | disposition home or self-care (01) ==
LOC: RADMAMWWP 10:23
PROVIDERS: ATTEND Obstetrics & Gynecology
DX: Z12.31 Encounter for screening mammogram for malignant neoplasm of breast (principal); Z78.0 Asymptomatic menopausal state
CPT/HCPCS: 77063; 77067

== ENCOUNTER → 2022-04-01 | Outpatient (CLI) | payer MEDICARE ==
--- NOTE | 2022-04-02 21:26 | MR ---
EXAMINATION TYPE: MR lumbar spine wo/w con DATE OF EXAM: 04/01/2022 11:28 AM COMPARISON: CT abdomen pelvis 06/04/2014. CLINICAL INDICATION:Female, 51 years old with history of M54.50 LOW BACK PAIN, UNSPECIFIED; TECHNIQUE: Multi planar, multi sequence imaging was performed utilizing: T1-weighted, T2-weighted, a nd turbo inversion recovery imaging of the lumbar spine. IV Contrast: 7 cc Gadavist. None. FINDINGS: Alignment: The lumbar vertebral bodies have preserved heights , grade 1 anterolisthesis of L4 and L5. Cord: The conus medullaris and the distal spinal cord appear unremarkable with regards to their signa l intensity and morphology. No abnormal postcontrast enhancement. Bones/Discs: Bone marrow signal is grossly maintained. Multilevel degenerative disc disease is noted and most pronounced at the L4-L5 and L5-S1. No abnormal postcontrast enhancement. No significant disc desiccation. L1-L2: No evidence of significant spinal canal stenosis or neural foraminal stenosis. L2-L3: No evidence of significant spinal canal stenosis or neural foraminal stenosis. L3-L4: Disc bulging and facet joint arthropathy result in mild spinal canal and mild bilateral neural foraminal stenosis. L4-L5: Disc uncovering from grade 1 anterolisthesis with bulging and facet joint arthropathy with mil d spinal canal and moderate bilateral neural foraminal stenosis. Small bilateral facet joint effusions are noted at this level. L5-S1: No evidence of significant spinal canal stenosis. Facet joint arthropathy with mild right and moderate left neural foraminal stenosis. Small bilateral facet joint effusions are noted at this leve l. There is associated synovial cyst the largest next to the right L5-S1 facet joint measuring up to 12 mm which is posterior to the spine and posterior to the facet joint. Other findings: None. IMPRESSION: 1. No definitive evidence of disc herniation or significant spinal canal stenosis. 2. Multilevel disc degeneration with associated osteoarthritic changes there is associated facet gerardo nt effusions at L4-L5 and L5-S1 3. No abnormal postcontrast enhancement.
== END | disposition home or self-care (01) ==
LOC: RADMRIMAIN 10:42
PROVIDERS: ATTEND Psychiatry & Neurology Neurology
DX: M51.36 Other intervertebral disc degeneration, lumbar region (principal); M47.816 Spondylosis without myelopathy or radiculopathy, lumbar region; M47.817 Spondylosis without myelopathy or radiculopathy, lumbosacral region; M54.50 Low back pain, unspecified
CPT/HCPCS: 72158

== ENCOUNTER → 2022-04-05 | Outpatient (CLI) | payer MEDICARE ==
--- NOTE | 2022-04-05 10:45 | MR ---
EXAMINATION TYPE: MR pituitary wo/w con DATE OF EXAM: 04/05/2022 COMPARISON: 07/13/2018 HISTORY: Pituitary abnormality, E23.7-253.9 TECHNIQUE: Multiplanar, multisequence images of the pituitary gland is performed without and with IV contrast, u tilizing 7 mL intravenous Gadavist . FINDINGS: Pituitary gland is normal in size within sella turcica. Pituitary stalk redemonstrates norm al enhancement in the midline suprasellar level. There is persistent round area of nonenhancement ant erior aspect of the pituitary gland with some T1 and T2 hyperintensity measuring 3 mm AP diameter by 4 mm craniocaudal diameter by 4 mm transversely not significantly changed in size or appearance from prior MRI. Suprasellar cistern is maintained. Optic chiasm is not effaced. IMPRESSION: 1. Small area of lack of enhancement involving the anterior pituitary gland suggestive of a 3 to 4 mm a pituitary microadenoma unchanged from prior exam
== END | disposition home or self-care (01) ==
LOC: RADMRIMAIN 09:30
PROVIDERS: ATTEND Psychiatry & Neurology Neurology
DX: E23.7 Disorder of pituitary gland, unspecified (principal); M54.50 Low back pain, unspecified; M47.816 Spondylosis without myelopathy or radiculopathy, lumbar region; R90.82 White matter disease, unspecified
CPT/HCPCS: 70553; A9585

== ENCOUNTER → 2022-04-21 | Outpatient (CLI) | payer MEDICARE ==
--- NOTE | 2022-04-21 14:37 | MR ---
EXAMINATION TYPE: MR angio head wo con DATE OF EXAM: 04/21/2022 COMPARISON: Prior MRI brain May 05, 2015 HISTORY: White matter disease, pituitary abnormality. R90.82,E23.7,M54.50,M47.816. TECHNIQUE: Time of flight images focusing on the [place] of [place] were performed without contrast.. 2-D and 3-D postprocessing imaging is performed in MRI scanner. FINDINGS: Dominant left vertebral artery fills the basilar artery. There is a smaller caliber distal right vertebral artery. There is patent right posterior communicating artery filling the right P2 seg ment is hypoplastic right-sided P1 segment. There is hypoplastic left posterior communicating artery. There is no significant focal stenosis or aneurysm in the posterior circulation. Normal variant. Small caliber but patent anterior communicating artery axial image 111. There is no significant focal stenosis or aneurysm in the anterior circulation. IMPRESSION: No aneurysm at the level of the [place].
--- NOTE | 2022-04-21 14:54 | MR ---
EXAMINATION TYPE: MR brain wo/w con DATE OF EXAM: 04/21/2022 COMPARISON: MRI brain July 13, 2018 HISTORY: White matter disease, pituitary abnormality TECHNIQUE: Multiplanar, multisequence images of the brain and brainstem is performed without and with IV contras t, utilizing 7 mL intravenous Gadavist gadolinium contrast is administered intravenously. Demyelinat ing disease protocol with additional Sagittal Flair sequence performed. FINDINGS: T2 Lesions Present : Yes Approximate Number of Lesions: Approximately 15-20 small lesions slightly increased in number from pr ior. Locations Identified : Scattered Size of Reference Lesion(s): 1. 6 x 4 x 10 mm lesion axial image 15 and sagittal image 104 inferior left frontal deep white matter slightly more prominent or larger from most recent prior. Enhancing Lesion(s) Present: No Change from Prior: Increase in number and increase in size of some of the lesions. Diffusion weighted images demonstrate no evidence of a recent infarct or other diffusion abnormality. There is no worrisome extra-axial fluid collection. The ventricular system and cisternal spaces ar e normal in size and appearance. The brain volume is age appropriate. T2 Star weighted images show n o suspicious intraparenchymal blood products. Midline structures demonstrate normal morphology. The craniocervical junction appears within normal limits. Post contrast images demonstrate no abnormal enhancement. The dural venous sinuses appear pa tent. The visualized sinuses are clear and the globes are intact. IMPRESSION: Mild to moderate nonspecific white matter changes appear to continue to show slight inter viral progression in size and number from most recent MRI. No enhancing lesions are evident.
== END | disposition home or self-care (01) ==
LOC: RADMRIMAIN 13:48
PROVIDERS: ATTEND Psychiatry & Neurology Neurology
DX: R90.82 White matter disease, unspecified (principal); E23.7 Disorder of pituitary gland, unspecified; M47.816 Spondylosis without myelopathy or radiculopathy, lumbar region; M54.50 Low back pain, unspecified
CPT/HCPCS: 70544; 70553; A9585

== ENCOUNTER → 2023-08-09 | Outpatient (CLI) | payer MEDICARE ==
--- NOTE | 2023-08-12 18:20 | MM ---
Reason for Exam: Screening (asymptomatic). Last mammogram was performed 2 year(s) and 3 month(s) ago. Patient History: Menarche at age 13. First Full-Term at age 33. Late child-bearing (after 30). Postmenopausal. Risk Values: Ines 5 year model risk: 1.4%. NCI Lifetime model risk: 12.0%. Prior Study Comparison: 01/22/2014 Screening Mammogram, [facility]. 01/23/2016 Screening Mammogram, [facility]. 05/15/2021 Bilateral Screening Mammogram, [facility]. Tissue Density: There are scattered areas of fibroglandular density. Findings: Analyzed By CAD. The pattern is symmetrical. Scattered benign punctate calcifications are present bilaterally. Small spherical calcification is within the left breast. No suspicious groups of microcalcifications, spiculated or lobular masses, architectural distortion or other secondary signs of malignancy are mammographically apparent. Overall Assessment: Benign, BI-RAD 2 Management: Screening Mammogram of both breasts in 1 year. A negative mammogram report should not preclude additional follow up of suspicious palpable abnormalities. Patient should continue monthly self breast exam. A clinical breast exam by your physician is recommended on an annual basis and results should be correlated with mammographic findings. Electronically signed and approved by: Reji Black D.O. Radiologis
== END | disposition home or self-care (01) ==
LOC: RADMAMWWP 13:07
PROVIDERS: ATTEND Family Medicine
DX: Z12.31 Encounter for screening mammogram for malignant neoplasm of breast (principal); Z78.0 Asymptomatic menopausal state
CPT/HCPCS: 77063; 77067

== ENCOUNTER 2024-02-07 11:56 | Inpatient (IN) | payer MEDICARE ==
--- NOTE | 2024-02-07 12:10 | ED ---
Abdominal Pain HPI - General Chief Complaint: Abdominal Pain Stated Complaint: Abdominal Pain Time Seen by Provider: 02/07/24 12:10 Source: patient, RN notes reviewed Mode of arrival: ambulatory Limitations: no limitations - History of Present Illness Initial Comments: This is a 53-year-old female presents emergency department chief complaint of right lower quadrant abdominal pain. States that the pain has been present over the past 4 to 5 days and has stayed in the right lower quadrant. Patient was evaluated at urgent care this morning where they prompted her to report to the emergency department for further evaluation to rule out appendicitis. Patient states that she experienced a fever on Tuesday and has been having bouts of nausea. Endorses mild episodes of diarrhea as well. Denies previous surgical abdominal history. - Related Data Home Medications Medication Instructions Recorded Confirmed Baclofen [Lioresal] 10 mg PO TID PRN 06/04/14 02/07/24 Atorvastatin Calcium [Lipitor] 10 mg PO HS 03/31/21 02/07/24 Metoprolol Succinate [Toprol XL] 25 mg PO HS 03/31/21 02/07/24 Pregabalin [Lyrica] 150 mg PO TID 03/31/21 02/07/24 oxyCODONE-APAP 7.5-325MG [Percocet 1 tab PO BID 03/31/21 02/07/24 7.5-325 mg] Jxeajvo-Yvct-Kmng [id number] 1 tab PO Q4HR PRN 02/07/24 02/07/24 [Excedrin] DULoxetine HCL [Cymbalta] 20 mg PO DAILY 02/07/24 02/07/24 Latanoprost [Latanoprost 0.005%] 1 drop BOTH EYES HS 02/07/24 02/07/24 Losartan [Cozaar] 25 mg PO DAILY 02/07/24 02/07/24 QUEtiapine [SEROquel] 50 mg PO HS PRN 02/07/24 02/07/24 Vitamin C(Unknown Dose) 1 tab PO DAILY 02/07/24 02/07/24 Previous Rx's Medication Instructions Recorded Pantoprazole Sodium [Protonix] 40 mg PO BID #60 tab 04/01/21 Allergies Allergy/AdvReac Type Severity Reaction Status Date / Time methadone Allergy Rash/Hives Verified 02/07/24 16:45 Review of Systems ROS Statement: Those systems with pertinent positive or pertinent negative responses have been documented in the HPI. ROS Other: All systems not noted in ROS Statement are negative. Past Medical History Past Medical History: Fibromyalgia, Hypertension Additional Past Medical History / Comment(s): back pain, glaucoma, Teto Disk Disease History of Any Multi-Drug Resistant Organisms: None Reported Additional Past Surgical History / Comment(s): hip surgery Past Anesthesia/Blood Transfusion Reactions: No Reported Reaction Past Psychological History: Anxiety, Depression Smoking Status: Current every day smoker Past Alcohol Use History: None Reported Past Drug Use History: None Reported - Past Family History Mother Family Medical History: Hyperlipidemia, Hypertension Father Family Medical History: CVA/TIA, Hyperlipidemia, Hypertension Additional Family Medical History / Comment(s): brain aneurysm at age 32 General Exam Limitations: no limitations General appearance: alert, in no apparent distress Head exam: Present: atraumatic, normocephalic, normal inspection ENT exam: Present: normal exam, mucous membranes moist Neck exam: Present: normal inspection. Absent: tenderness, meningismus, lymphadenopathy Respiratory exam: Present: normal lung sounds bilaterally. Absent: respiratory distress, wheezes, rales, rhonchi, stridor Cardiovascular Exam: Present: regular rate, normal rhythm, normal heart sounds. Absent: systolic murmur, diastolic murmur, rubs, gallop, clicks GI/Abdominal exam: Present: soft, tenderness (RLQ), rebound (RLQ), normal bowel sounds. Absent: distended, guarding, rigid Extremities exam: Present: normal inspection, full ROM, normal capillary refill. Absent: tenderness, pedal edema, joint swelling, calf tenderness Back exam: Present: normal inspection Skin exam: Present: warm, dry, intact, normal color. Absent: rash Course Vital Signs 02/07/24 02/07/24 02/07/24 12:00 15:59 16:32 Temperature 98 F 97.7 F Pulse Rate 87 96 Pulse Rate [ 76 Pulse Oximetery ] Respiratory 16 18 16 Rate Blood Pressure 122/73 109/70 Blood Pressure 109/58 [Right Arm] O2 Sat by Pulse 100 97 99 Oximetry Medical Decision Making - Medical Decision Making Was pt. sent in by a medical professional or institution (, PA, MANAGER SOLAR, urgent care, hospital, or fdc...) When possible be specific @ -No Did you speak to anyone other than the patient for history (EMS, parent, family, police, friend...)? What history was obtained from this source @ -No Did you review nursing and triage notes (agree or disagree)? Why? @ -I reviewed and agree with nursing and triage notes Were old charts reviewed (outside hosp., previous admission, EMS record, old EKG, old radiological studies, urgent care reports/EKG's, fdc records)? Report findings @ -No old charts were reviewed Differential Diagnosis (chest pain, altered mental status, abdominal pain women, abdominal pain men, vaginal bleeding, weakness, fever, dyspnea, syncope, headache, dizziness, GI bleed, back pain, seizure, CVA, palpatations, mental health, musculoskeletal)? @ -Differential Abdominal Pain Women: Appendicitis, Cholecystitis, diverticulosis, ischemic bowel, pancreatitis, hepatitis, UTI, gastroenteritis, AAA, incarcerated hernia, bowel obstruction, constipation, inflammatory bowel, hepatitis, peptic ulcer disease, splenic inf arction, perforated viscus, vulvitis, ovarian torsion, PID, kidney stone, placenta abruption, this is not meant to be an all-inclusive list EKG interpreted by me (3pts min.). @ -None X-rays interpreted by me (1pt min.). @ -None done CT interpreted by me (1pt min.). @ -CT of the abdomen pelvis with IV contrast reveals acute appendicitis with surrounding phlegmon and 1 or 2 small abscesses are difficult to exclude with a small amount of free fluid noted as well U/S interpreted by me (1pt. min.). @ -None done What testing was considered but not performed or refused? (CT, X-rays, U/S, labs)? Why? @ -None What meds were considered but not given or refused? Why? @ -None Did you discuss the management of the patient with other professionals (professionals i.e. , PA, MANAGER SOLAR, lab, RT, psych nurse, delinquency prevention social worker, lap winder, teacher, weapons officer naval activity, dependency case manager)? Give summary @ -i spoke with general surgeon consumer affairs director, Dr. Pickens, in regard to the patient's CT findings concerning for a appendicitis with potential small abscess. Patient is excepted for admission with surgical consult on board Was smoking cessation discussed for >3mins.? @ -No Was critical care preformed (if so, how long)? @ -No Were there social determinants of health that impacted care today? How? (Homelessness, low income, unemployed, alcoholism, drug addiction, transportation, low edu. Level, literacy, decrease access to med. care, half-way, rehab)? @ -No Was there de-escalation of care discussed even if they declined (Discuss DNR or withdrawal of care, Hospice)? DNR status @ -No What co-morbidities impacted this encounter? (DM, HTN, Smoking, COPD, CAD, Cancer, CVA, ARF, Chemo, Hep., AIDS, mental health diagnosis, sleep apnea, morbid obesity)? @ -None Was patient admitted / discharged? Hospital course, mention meds given and route, prescriptions, significant lab abnormalities, going to OR and other pertinent info. @ -Admitted. 53-year-old female with right lower quadrant abdominal pain. On evaluation the patient she is afebrile nontachycardic and has right lower quadrant abdominal tenderness to palpation. patient is was evaluated in the waiting room where laboratory studies were ordered in addition to CT imaging. CBC reveals mild leukocytosis of 11.8 and left shift of 9.9, CMP unremarkable CT imaging concerning for acute appendicitis with surrounding phlegmon. Patient will be admitted to general surgery for surgical consult and started on IV antibiotics in addition to antiemetics and pain control. Undiagnosed new problem with uncertain prognosis? @ -No Drug Therapy requiring intensive monitoring for toxicity (Heparin, Nitro, Insulin, Cardizem)? @ -No Were any procedures done? @ -No Diagnosis/symptom? @ -Appendicitis with phlegmon Acute, or Chronic, or Acute on Chronic? @ -acute Uncomplicated (without systemic symptoms) or Complicated (systemic symptoms)? @ -complictaed Side effects of treatment? @ -No Exacerbation, Progression, or Severe Exacerbation? @ -No Poses a threat to life or bodily function? How? (Chest pain, [place], [place], pneumonia, PE, COPD, DKA, ARF, appy, cholecystitis, CVA, Diverticulitis, Homicidal, Suicidal, threat to staff... and all critical care pts) @ -No - Lab Data Result diagrams: 02/07/24 13:13 02/07/24 13:13 Lab Results 02/07/24 02/07/24 02/07/24 Range/Units 13:13 13:13 13:13 WBC 11.8 H (3.8-10.6) k/uL RBC 3.79 L (3.80-5.40) m/uL Hgb 11.5 (11.4-16.0) gm/dL Hct 35.5 (34.0-46.0) % MCV 93.7 (80.0-100.0) fL MCH 30.5 (25.0-35.0) pg MCHC 32.5 (31.0-37.0) g/dL RDW 12.9 (11.5-15.5) % Plt Count 530 H (150-450) k/uL MPV 7.1 Neutrophils % 84 % Lymphocytes % 9 % Monocytes % 5 % Eosinophils % 1 % Basophils % 0 % Neutrophils # 9.9 H (1.3-7.7) k/uL Lymphocytes # 1.0 (1.0-4.8) k/uL Monocytes # 0.6 (0-1.0) k/uL Eosinophils # 0.1 (0-0.7) k/uL Basophils # 0.0 (0-0.2) k/uL Sodium 139 (137-145) mmol/L Potassium 4.0 (3.5-5.1) mmol/L Chloride 103 (98-107) mmol/L Carbon Dioxide 27 (22-30) mmol/L Anion Gap 9 mmol/L BUN 10 (7-17) mg/dL Creatinine 0.46 L (0.52-1.04) mg/dL Est GFR (CKD-EPI)AfAm >90 (>60 ml/min/1.73 sqM) Est GFR (CKD-EPI)NonAf >90 (>60 ml/min/1.73 sqM) Glucose 103 H (74-99) mg/dL Plasma Lactic Acid Veto 1.0 (0.7-2.0) mmol/L Calcium 9.0 (8.4-10.2) mg/dL Total Bilirubin 0.6 (0.2-1.3) mg/dL AST 40 H (14-36) U/L ALT 25 (4-34) U/L Alkaline Phosphatase 88 (38-126) U/L Total Protein 6.4 (6.3-8.2) g/dL Albumin 3.7 (3.5-5.0) g/dL Amylase 32 (30-110) U/L Lipase 46 (23-300) U/L Disposition Clinical Impression: Appendicitis, Acute phlegmonous appendicitis Disposition: ADMITTED IP TO THIS [facility] Condition: Serious Is patient prescribed a controlled substance at d/c from ED?: No Decision to Admit Reason: Admit from EC Decision Date: 02/07/24 Decision Time: 14:51
[2024-02-07 13:35] LABS: Basophils % (A) 0 %; Eosinophils # (A) 0.1 k/uL (0-0.7); Eosinophils % (A) 1 %; HCT 35.5 % (34.0-46.0); HGB 11.5 gm/dL (11.4-16.0); Lymphocytes % (A) 9 %; MCH 30.5 pg (25.0-35.0); MCHC 32.5 g/dL (31.0-37.0); MCV 93.7 fL (80.0-100.0); Mean Platelet Volume 7.1; Monocytes # (A) 0.6 k/uL (0-1.0); Monocytes % (A) 5 %; Neutrophils # (A) 9.9 k/uL (1.3-7.7); Neutrophils % (A) 84 %; Platelet Count 530 k/uL (150-450); RBC 3.79 m/uL (3.80-5.40); RDW 12.9 % (11.5-15.5); WBC 11.8 k/uL (3.8-10.6)
[2024-02-07 13:49] LABS: ALT 25 U/L (4-34); AST 40 U/L (14-36); African American GFR (CKD) >90 (>60 ml/min/1.73 sqM); Albumin 3.7 g/dL (3.5-5.0); Alkaline Phosphatase 88 U/L (38-126); Amylase 32 U/L (30-110); Anion Gap 9 mmol/L; Blood Urea Nitrogen 10 mg/dL (7-17); Carbon Dioxide 27 mmol/L (22-30); Chloride 103 mmol/L (98-107); Glucose 103 mg/dL (74-99); Lipase 46 U/L (23-300); Non-African American GFR(CKD) >90 (>60 ml/min/1.73 sqM); Sodium 139 mmol/L (137-145); Total Bilirubin 0.6 mg/dL (0.2-1.3); Total Protein 6.4 g/dL (6.3-8.2)
--- NOTE | 2024-02-07 14:18 | CT ---
EXAMINATION TYPE: CT abdomen pelvis w con DATE OF EXAM: 02/07/2024 COMPARISON: 06/04/2014 HISTORY: RLQ pain, Fever, Nausea CT DLP: 758.8 mGycm CONTRAST: CT scan of the abdomen and pelvis is performed without Oral Contrast and with IV Contrast, patient in jected with 100 ml mL of Isovue 370. FINDINGS: LUNG BASES-: No visible nodule. No infiltrate. LIVER/GB: No calcified gallstones. 2.9 cm mass in the left hepatic lobe at its periphery with parti al peripheral enhancement on delayed imaging may reflect hemangioma. This could be confirmed with ult rasound. Biliary tree is of normal caliber. PANCREAS: No inflammation. No distinct mass. SPLEEN: No splenic enlargement. No lesion seen. ADRENALS: No nodule. No thickening. KIDNEYS/BLADDER: No hydronephrosis. No nephrolithiasis. No distinct renal mass. Urinary bladder g rossly unremarkable. BOWEL: Extensive inflammatory changes right lower quadrant felt to be secondary to acute appendicitis with small abscess felt to be present measuring 2.3 cm with surrounding phlegmon and small amount of free fluid. GENITAL ORGANS: No gross abnormality. LYMPH NODES: No greater than 1cm abdominal or pelvic lymph nodes are appreciated. AORTA: No significant abnormality. OSSEOUS STRUCTURES: No significant abnormality is seen. OTHER: No significant additional abnormality is seen. IMPRESSION: 1. Findings felt to reflect acute appendicitis with surrounding phlegmon and one or 2 small abscesses difficult to exclude. Small amount of free fluid noted as well. 2. Probable hepatic hemangioma. [facility], , 02/07/2024 2:15 PM
[2024-02-07] MEDS: ONDANSETRON 4 MG/2 ML VIAL IVP STA (14:33)
[2024-02-07] MEDS: MORPHINE SULFATE 4 MG/ML SYRINGE IVP STA (14:33)
[2024-02-07] MEDS ORDERED: NALOXONE 0.4 MG/ML 1 ML VIAL IV PRN (14:51)
[2024-02-07] MEDS: PIPERACILLIN-TAZOBACTAM 3.375 GM in SODIUM CHLORIDE 0.9% 100 ML IVPB STA (15:03)
--- NOTE | 2024-02-07 15:56 | P.GSHP ---
History of Present Illness H&P Date: 02/07/24 53-year-old female presents to the emergency department with complaint of abdominal pain in the right lower quadrant that started over a week ago. Pain has been present and has worsened over that time period. Patient also states that she has had on and off fevers during that time period. On workup, patient is found to have mild leukocytosis with significant left shift. CT of the abdomen and pelvis was performed with concern for appendicitis with phlegmon creation and free fluid. No obvious distinct abscess is noted. - Review of Systems All systems: negative Past Medical History Past Medical History: Fibromyalgia, Hypertension Additional Past Medical History / Comment(s): back pain, glaucoma, Teto Disk Disease History of Any Multi-Drug Resistant Organisms: None Reported Additional Past Surgical History / Comment(s): hip surgery Past Anesthesia/Blood Transfusion Reactions: No Reported Reaction Past Psychological History: Anxiety, Depression Smoking Status: Current every day smoker Past Alcohol Use History: None Reported Past Drug Use History: None Reported - Past Family History Mother Family Medical History: Hyperlipidemia, Hypertension Father Family Medical History: CVA/TIA, Hyperlipidemia, Hypertension Additional Family Medical History / Comment(s): brain aneurysm at age 32 Medications and Allergies Home Medications Medication Instructions Recorded Confirmed Type Baclofen [Lioresal] 10 mg PO TID PRN 06/04/14 02/07/24 History Atorvastatin Calcium [Lipitor] 10 mg PO HS 03/31/21 02/07/24 History Metoprolol Succinate [Toprol XL] 25 mg PO HS 03/31/21 02/07/24 History Pregabalin [Lyrica] 150 mg PO TID 03/31/21 02/07/24 History oxyCODONE-APAP 7.5-325MG [Percocet 1 tab PO BID 03/31/21 02/07/24 History 7.5-325 mg] Pantoprazole Sodium [Protonix] 40 mg PO BID #60 tab 04/01/21 02/07/24 Rx Cdnofdk-Ppae-Dlub [id number] 1 tab PO Q4HR PRN 02/07/24 02/07/24 History [Excedrin] DULoxetine HCL [Cymbalta] 20 mg PO DAILY 02/07/24 02/07/24 History Latanoprost [Latanoprost 0.005%] 1 drop BOTH EYES HS 02/07/24 02/07/24 History Losartan [Cozaar] 25 mg PO DAILY 02/07/24 02/07/24 History QUEtiapine [SEROquel] 50 mg PO HS PRN 02/07/24 02/07/24 History Vitamin C(Unknown Dose) 1 tab PO DAILY 02/07/24 02/07/24 History Allergies Allergy/AdvReac Type Severity Reaction Status Date / Time methadone Allergy Rash/Hives Verified 02/07/24 14:37 Surgical - Exam Osteopathic Statement: *. No significant issues noted on an osteopathic structu ral exam other than those noted in the History and Physical/Consult. Vital Signs Temp Pulse Resp BP Pulse Ox 98 F 87 16 122/73 100 02/07/24 12:00 02/07/24 12:00 02/07/24 12:00 02/07/24 12:00 02/07/24 12:00 - General well nourished, no distress - Eyes normal ocular movement - ENT normal nares, normal mucosa, no hearing loss - Neck trachea midline - Respiratory normal respiratory effort - Abdomen Soft, tender to palpation in the right lower quadrant, nontender to percussion, nondistended, no rebound, no guarding - Psychiatric oriented to time, oriented to person, oriented to place Results - Labs 02/07/24 13:13 02/07/24 13:13 Abnormal Lab Results - Last 24 Hours (Table) 02/07/24 02/07/24 Range/Units 13:13 13:13 WBC 11.8 H (3.8-10.6) k/uL RBC 3.79 L (3.80-5.40) m/uL Plt Count 530 H (150-450) k/uL Neutrophils # 9.9 H (1.3-7.7) k/uL Creatinine 0.46 L (0.52-1.04) mg/dL Glucose 103 H (74-99) mg/dL AST 40 H (14-36) U/L Diabetes panel 02/07/24 Range/Units 13:13 Sodium 139 (137-145) mmol/L Potassium 4.0 (3.5-5.1) mmol/L Chloride 103 (98-107) mmol/L Carbon Dioxide 27 (22-30) mmol/L BUN 10 (7-17) mg/dL Creatinine 0.46 L (0.52-1.04) mg/dL Glucose 103 H (74-99) mg/dL Calcium 9.0 (8.4-10.2) mg/dL AST 40 H (14-36) U/L ALT 25 (4-34) U/L Alkaline Phosphatase 88 (38-126) U/L Total Protein 6.4 (6.3-8.2) g/dL Albumin 3.7 (3.5-5.0) g/dL Calcium panel 02/07/24 Range/Units 13:13 Calcium 9.0 (8.4-10.2) mg/dL Albumin 3.7 (3.5-5.0) g/dL Pituitary panel 02/07/24 Range/Units 13:13 Sodium 139 (137-145) mmol/L Potassium 4.0 (3.5-5.1) mmol/L Chloride 103 (98-107) mmol/L Carbon Dioxide 27 (22-30) mmol/L BUN 10 (7-17) mg/dL Creatinine 0.46 L (0.52-1.04) mg/dL Glucose 103 H (74-99) mg/dL Calcium 9.0 (8.4-10.2) mg/dL Adrenal panel 02/07/24 Range/Units 13:13 Sodium 139 (137-145) mmol/L Potassium 4.0 (3.5-5.1) mmol/L Chloride 103 (98-107) mmol/L Carbon Dioxide 27 (22-30) mmol/L BUN 10 (7-17) mg/dL Creatinine 0.46 L (0.52-1.04) mg/dL Glucose 103 H (74-99) mg/dL Calcium 9.0 (8.4-10.2) mg/dL Total Bilirubin 0.6 (0.2-1.3) mg/dL AST 40 H (14-36) U/L ALT 25 (4-34) U/L Alkaline Phosphatase 88 (38-126) U/L Total Protein 6.4 (6.3-8.2) g/dL Albumin 3.7 (3.5-5.0) g/dL Assessment and Plan Plan: 53-year-old female with acute appendicitis with concern for phlegmon and some free fluid. The patient was started on IV antibiotics and pain control. Keep the patient NPO. I did discuss surgical options with the patient with plan for laparoscopic approach with appendectomy. Based on personal review of CT and CT read, I did tell the patient that she is at risk of requiring an open procedure based on significant amount of inflammation and 1 week onset of disease process. She is understanding of this. Further recommendations after surgery. Patient is scheduled as an add-on and OR to accommodate based on availability.
[2024-02-07] MEDS: KETOROLAC 15 MG/ML 1 ML VIAL IVP PRN (16:01)
[2024-02-07] MEDS: IV FLUID CONTINUATION 1,000 ML IV ONE (16:45)
[2024-02-07] MEDS ORDERED: MIDAZOLAM 2 MG/2 ML VIAL ONE (17:25)
[2024-02-07] MEDS ORDERED: PROPOFOL 10 MG/ML 20 ML VIAL IV ONE (17:25)
[2024-02-07] MEDS ORDERED: ROCURONIUM 10 MG/ML (5 ML VIAL) IV ONE (17:25)
[2024-02-07] MEDS ORDERED: fentaNYL (PF) 50 MCG/ML 2 ML AMP ONE (17:25)
[2024-02-07] MEDS ORDERED: NEOSTIGMINE 1 MG/ML 10 ML VIAL ONE (17:25)
[2024-02-07] MEDS ORDERED: KETOROLAC 15 MG/ML 1 ML VIAL ONE (17:25)
[2024-02-07] MEDS ORDERED: LIDOCAINE 1% INJ 10MG/ML (20 ML MDV) ONE (17:25)
[2024-02-07] MEDS ORDERED: GLYCOPYRROLATE 0.2 MG/ML 2 ML VIAL ONE (17:25)
[2024-02-07] MEDS ORDERED: SUCCINYLCHOLINE CHLORIDE 200 MG/10 ML VIAL IV ONE (17:25)
[2024-02-07] MEDS: HEPARIN SODIUM,PORCINE 5,000 UNIT/ML 1 ML VIAL SQ ONE (17:28)
[2024-02-07] MEDS: LIDOCAINE 1%-EPI 1:100,000 20 ML VIAL SQ ONE (17:45)
[2024-02-07] MEDS: LACTATED RINGERS 1,000 ML IV ONE (18:23)
--- NOTE | 2024-02-07 19:12 | P.OP ---
Date of Procedure: 02/07/24 Preoperative Diagnosis: Acute appendicitis Postoperative Diagnosis: Acute ruptured appendicitis Intra-abdominal abscess Procedure(s) Performed: Diagnostic laparoscopy converted to open ileocecectomy Anesthesia: ASHOK Surgeon: Daria Pickens Estimated Blood Loss (ml): 10 Pathology: other (Ileocecectomy) Condition: stable Disposition: floor Indications for Procedure: 53-year-old female presented to the emergency department with complaint of right lower quadrant abdominal pain that has been going on for over a week. On workup, patient is found to have concern for acute appendicitis with phlegmon formation in the right lower quadrant. Risks, benefits and alternatives were p rovided to the patient prior to attending the operating suite. Operative Findings: Ruptured appendix with significant amount of purulent material in the right lower quadrant with significant inflammation and phlegmon Description of Procedure: Patient was brought to the operating suite and placed in supine position on the operating table. Sedation was provided by anesthesia and the patient underwent endotracheal intubation. She was then prepped and draped in regular sterile fashion. Santiago catheter was placed under sterile conditions. Local anesthetic was administered and a supraumbilical incision was made. Dissection was carried to the fascia and the fascia was incised. 5 mm trocar was placed and pneumoperitoneum was achieved. On exam of the right lower quadrant, the cecum was noted to be adhered to the abdominal wall with purulent material noted. 2 additional 5 mm ports were then placed. 1 was placed in the suprapubic region and 1 in the left lower quadrant. The cecum was slowly peeled from the abdominal wall and significant outpouring of purulent material was noted. Ileum was adhered to the cecum and this was dissected free and it was noted that the appendix was ruptured with some mild stool spillage. Based on these findings and significant inflammatory changes to the area, decision was made to convert to open with plan for ileocecectomy. Infraumbilical midline incision was made and dissection was carried to the fascia. The fascia was incised along the length of the incision. The cecum was then medialized and the cecum was noted to be hard to the touch and quite inflamed. The ileum appeared quite healthy. Transection point was made in the distal ileum and this was performed with a blue load bowel stapler. LigaSure was used to take down the mesentery adhering the distal ileum and ileocecal valve. The cecum was then peeled away from the abdominal wall and rupture site of the proximal appendix was clearly noted with stool spillage from the cecum. Healthy portion of the right colon was noted and transected using a blue load bowel stapler. The cecum was then dissected free from the mesentery using LigaSure. Hemostasis was noted to be maintained. Ileocecectomy was handed off as specimen. The 2 ends of the bowel were then anastomosed to created an ileocolic anastomosis. 2 enterotomies were created and stapler was fired. The resulting defect was then closed with a TA 60 blue load stapler. The staple line was imbricated with Lembert 3-0 Vicryl suture. The resulting rent in the mesentery was closed with a running 3-0 Vicryl suture. FLORA drain was placed in the pelvis and out from the left lower quadrant abdominal trocar site. Copious amounts irrigation was placed in the abdomen and collected. Wound was then closed with looped PDS suture along the fascia. Skin incision was closed with skin cliff. Sterile dressing applied. Patient awakened in the operating suite and taken to postanesthesia care unit in stable condition. Sponge and instrument count were correct x 2.
[2024-02-07] MEDS: ONDANSETRON 4 MG/2 ML VIAL IVP PRN (19:31)
[2024-02-07] MEDS: SCOPOLAMINE 1 MG/72 HR PATCH TRANSDERM STA (19:35)
[2024-02-07] MEDS: HYDROmorphone 0.5 MG/0.5 ML SYRINGE IVP STA (19:42)
[2024-02-07] MEDS: LACTATED RINGERS 1,000 ML IV SCH (20:52)
[2024-02-07] MEDS: PIPERACILLIN-TAZOBACTAM 3.375 GM in SODIUM CHLORIDE 0.9% 100 ML IVPB SCH (20:52)
[2024-02-07] MEDS: MORPHINE SULFATE 4 MG/ML SYRINGE IV PRN (20:52)
[2024-02-07] MEDS: HYDROcodone/APAP 5-325MG 1 EACH TAB PO PRN (22:05)
[2024-02-07] MEDS: ATORVASTATIN 10 MG TAB PO SCH (22:05)
[2024-02-07] MEDS: PREGABALIN 75 MG CAP PO SCH (22:05)
[2024-02-07] MEDS: METOPROLOL SUCCINATE (ER) 25 MG TAB.ER.24H PO SCH (22:07)
[2024-02-08] MEDS: LATANOPROST 0.005% OPHTH DROPS 2.5 ML BTL BOTH EYES SCH (01:06)
[2024-02-08] MEDS: HYDROmorphone 1 MG/ML 1 ML SYRINGE IVP PRN (01:48)
[2024-02-08] MEDS: PIPERACILLIN-TAZOBACTAM 3.375 GM in SODIUM CHLORIDE 0.9% 100 ML IVPB SCH (05:46)
[2024-02-08] MEDS: LOSARTAN 25 MG TAB PO SCH (07:57)
[2024-02-08] MEDS: DULoxetine HCL 20 MG CAPSULE.DR PO SCH (07:57)
[2024-02-08 09:07] LABS: Basophils # (A) 0.03 X 10*3/uL (0.00-0.10); Basophils % (A) 0.2 %; Eosinophils # (A) 0.03 X 10*3/uL (0.04-0.35); Eosinophils % (A) 0.2 %; HCT 32.2 % (37.2-46.3); HGB 10.4 g/dL (12.0-15.0); Lymphocytes % (A) 7.5 %; MCH 30.9 pg (27.0-32.0); MCHC 32.3 g/dL (32.0-37.0); MCV 95.5 FL (80.0-97.0); Mean Platelet Volume 9.4 FL (9.5-12.2); Monocytes # (A) 0.56 X 10*3/uL (0.20-1.00); Monocytes % (A) 4.2 %; NRBC Per 100 WBC 0 X 10*3/uL (0.00-0.01); Neutrophils # (A) 11.61 X 10*3/uL (1.80-7.70); Neutrophils % (A) 87.4 %; Platelet Count 481 X 10*3/uL (140-440); RBC 3.37 X 10*6/uL (4.10-5.20); RDW 13.3 % (11.5-14.5); WBC 13.29 X 10*3/uL (4.50-10.00)
[2024-02-08] MEDS: PANTOPRAZOLE 40 MG/10 ML VIAL IVP SCH (09:15)
[2024-02-08 09:40] LABS: ALT 18 U/L (8-44); AST 24 U/L (13-35); Albumin 3.3 g/dL (3.8-4.9); Alkaline Phosphatase 77 U/L (41-126); BUN/Creat Ratio 15.83 Ratio (12.00-20.00); Blood Urea Nitrogen 9.5 mg/dL (9.0-27.0); Calcium 8.3 mg/dL (8.7-10.3); Carbon Dioxide 22.5 mmol/L (21.6-31.8); Chloride 104 mmol/L (96-109); Globulin 2.2 g/dL (1.6-3.3); Glucose 84 mg/dL (70-110); Potassium 3.8 mmol/L (3.5-5.5); Sodium 141 mmol/L (135-145); Total Bilirubin 0.4 mg/dL (0.3-1.2); Total Protein 5.5 g/dL (6.2-8.2)
--- NOTE | 2024-02-08 09:53 | P.PN ---
Subjective Progress Note Date: 02/08/24 Patient seen and examined at bedside. Complains of pain around incision, no nausea or vomiting. Objective - Vital Signs Vital signs: Vital Signs Temp 98.2 F 02/08/24 07:37 Pulse 94 02/08/24 07:37 Resp 17 02/08/24 07:37 BP 89/56 02/08/24 07:37 Pulse Ox 93 L 02/08/24 07:37 FiO2 Intake & Output 02/07/24 02/08/24 02/08/24 18:59 06:59 18:59 Intake Total 900 600 Output Total 133 705 Balance 767 -105 Weight 66.224 kg 66.224 kg Intake: IV 900 600 Output: Drainage 55 Abdomen 55 Urine 125 650 Estimated Blood Loss 8 Other: Voiding Method Indwelling Catheter - Constitutional General appearance: Present: cooperative - Respiratory Details: No difficulty with respiration - Gastrointestinal Gastrointestinal Comment(s): Soft, appropriate tenderness around incision site, nondistended, FLORA drain in place with serosanguineous output - Musculoskeletal Musculoskeletal: Present: generalized weakness - Psychiatric Psychiatric: Present: A&O x's 3 - Labs CBC & Chem 7: 02/08/24 02:28 02/08/24 02:28 Labs: Abnormal Lab Results - Last 24 Hours (Table) 02/07/24 02/07/24 02/08/24 Range/Units 13:13 13:13 02:28 WBC 11.8 H 13.29 H (3.8-10.6) k/uL RBC 3.79 L 3.37 L (3.80-5.40) m/uL Hgb 10.4 L (12.0-15.0) g/dL Hct 32.2 L (37.2-46.3) % Plt Count 530 H 481 H (150-450) k/uL MPV 9.4 L (9.5-12.2) FL Immature Gran # 0.06 H (0.00-0.04) X 10*3/uL Neutrophils # 9.9 H 11.61 H (1.3-7.7) k/uL Eosinophils # 0.03 L (0.04-0.35) X 10*3/uL Anion Gap (4.00-12.00) mmol/L Creatinine 0.46 L (0.52-1.04) mg/dL Glucose 103 H (74-99) mg/dL Calcium (8.7-10.3) mg/dL AST 40 H (14-36) U/L Total Protein (6.2-8.2) g/dL Albumin (3.8-4.9) g/dL Albumin/Globulin Ratio (1.60-3.17) Ratio // Range/Units 02:28 WBC (3.8-10.6) k/uL RBC (3.80-5.40) m/uL Hgb (12.0-15.0) g/dL Hct (37.2-46.3) % Plt Count (150-450) k/uL MPV (9.5-12.2) FL Immature Gran # (0.00-0.04) X 10*3/uL Neutrophils # (1.3-7.7) k/uL Eosinophils # (0.04-0.35) X 10*3/uL Anion Gap 14.50 H (4.00-12.00) mmol/L Creatinine (0.52-1.04) mg/dL Glucose (74-99) mg/dL Calcium 8.3 L (8.7-10.3) mg/dL AST (14-36) U/L Total Protein 5.5 L (6.2-8.2) g/dL Albumin 3.3 L (3.8-4.9) g/dL Albumin/Globulin Ratio 1.50 L (1.60-3.17) Ratio Assessment and Plan Plan: Postoperative day #1, laparoscopic appendectomy converted to open ileocecectomy. FLORA drain in place. Medications for pain management were adjusted. Recommended increasing activity today. Discontinue Santiago catheter today. Incentive spirometry. Appreciate medicine recommendations. Keep n.p.o. with ice chips at this time.
--- NOTE | 2024-02-08 16:50 | P.CONS ---
History of Present Illness - Reason for Consult Consult date: 02/08/24 Medical management Requesting physician: Daria Pickens - Chief Complaint Ruptured appendix with abscess status post open appendectomy - History of Present Illness This a 53-year-old female past medical history significant for fibromyalgia, hypertension, back pain, anxiety, depression, nicotine dependence presented to the ER with complaints of progressive right lower quadrant abdominal gas pain of 7 to 10 days accompanied by fevers.on admission, febrile, elevated WBC, CT imaging reported acute appendicitis with surrounding phlegmon and 1 or 2 small abscesses difficult to exclude, small amount of free fluid noted, probable hepatic hemangioma. Patient proceeded with diagnostic laparoscopy converted to open ileocecectomy secondary to acute ruptured appendicitis with intra-abdominal abscess. Pathology pending maintained on IV fluid hydration, antibiotics of Zos yn. blood pressures soft. Denies chest pain, palpitations or shortness of breath. Maintaining O2 sats in the 90s on room air. Positive pain -incisional site. Tolerating ice chips with no nausea or vomiting. Afebrile, WBC 13.29. Hemoglobin 10.4, platelets 481. Renal function stable. Review of Systems ROS Statement: Those systems with pertinent positive or pertinent negative responses have been documented in the HPI. ROS Other: All systems not noted in ROS Statement are negative. Past Medical History Past Medical History: Fibromyalgia, Hypertension Additional Past Medical History / Comment(s): back pain, glaucoma, Degenerative Disk Disease, Buldging disc, lower back stenosis History of Any Multi-Drug Resistant Organisms: None Reported Additional Past Surgical History / Comment(s): hip surgery Past Anesthesia/Blood Transfusion Reactions: No Reported Reaction Past Psychological History: Anxiety, Depression Smoking Status: Current every day smoker Past Alcohol Use History: None Reported Past Drug Use History: None Reported - Past Family History Mother Family Medical History: Hyperlipidemia, Hypertension Father Family Medical History: CVA/TIA, Hyperlipidemia, Hypertension Additional Family Medical History / Comment(s): brain aneurysm at age 32 Medications and Allergies Home Medications Medication Instructions Recorded Confirmed Type Baclofen [Lioresal] 10 mg PO TID PRN 06/04/14 02/07/24 History Atorvastatin Calcium [Lipitor] 10 mg PO HS 03/31/21 02/07/24 History Metoprolol Succinate [Toprol XL] 25 mg PO HS 03/31/21 02/07/24 History Pregabalin [Lyrica] 150 mg PO TID 03/31/21 02/07/24 History oxyCODONE-APAP 7.5-325MG [Percocet 1 tab PO BID 03/31/21 02/07/24 History 7.5-325 mg] Pantoprazole Sodium [Protonix] 40 mg PO BID #60 tab 04/01/21 02/07/24 Rx [id number] 1 tab PO Q4HR PRN 02/07/24 02/07/24 History [Excedrin] DULoxetine HCL [Cymbalta] 20 mg PO DAILY 02/07/24 02/07/24 History Latanoprost [Latanoprost 0.005%] 1 drop BOTH EYES HS 02/07/24 02/07/24 History Losartan [Cozaar] 25 mg PO DAILY 02/07/24 02/07/24 History QUEtiapine [SEROquel] 50 mg PO HS PRN 02/07/24 02/07/24 History Vitamin C(Unknown Dose) 1 tab PO DAILY 02/07/24 02/07/24 History Allergies Allergy/AdvReac Type Severity Reaction Status Date / Time methadone Allergy Rash/Hives Verified 02/07/24 16:45 Physical Exam Vitals: Vital Signs Temp Pulse Pulse Resp BP Pulse Ox 02/08/24 14:00 98.0 F 89 16 96/57 96 02/08/24 07:37 98.2 F 94 17 89/56 93 L 02/08/24 00:48 98.6 F 89 18 106/61 95 02/07/24 21:56 83 102/63 96 02/07/24 21:41 86 117/70 96 02/07/24 21:27 81 111/60 97 02/07/24 21:12 55 L 109/63 100 02/07/24 20:57 87 122/63 97 02/07/24 20:41 64 117/65 98 02/07/24 20:20 71 16 128/67 100 02/07/24 20:07 74 16 153/67 99 02/07/24 19:52 66 16 143/63 100 02/07/24 19:37 65 16 158/75 100 02/07/24 19:22 66 16 144/77 95 02/07/24 19:07 97.0 F L 90 16 127/67 98 02/07/24 16:32 97.7 F 76 16 109/58 99 Intake and Output 02/08/24 02/08/24 02/08/24 06:59 14:59 22:59 Output Total 505 215 Balance -505 -215 Output: Drainage 55 Abdomen 55 Urine 450 215 Uretheral ([place]) 215 PHYSICAL EXAM: VITAL SIGNS: As above GENERAL: Alert and oriented x 3, lying up in bed, no acute distress HEENT: Normocephalic, atraumatic ,conjunctivae normal. eyes normal. NECK: Supple, no JVD. No LNs CARDIOVASCULAR: S1, S2 regular.. No murmur RESPIRATION: Unlabored, equal air entry, breath sounds diminished in the bases. No rhonchi or crackles. No bronchial breathing. ABDOMEN: Soft, status post surgery, dressing clean dry and intact. FLORA drain with serosanguineous. LEGS: No edema. no swelling NERVOUS SYSTEM: Cranial N 2-12 grossly normal. No focal deficits. Strength and sensation grossly intact. Skin: Warm and dry, no rash Results CBC & Chem 7: 02/08/24 02:28 02/08/24 02:28 Labs: Abnormal Lab Results - Last 24 Hours (Table) 02/08/24 02/08/24 Range/Units 02:28 02:28 WBC 13.29 H (4.50-10.00) X 10*3/uL RBC 3.37 L (4.10-5.20) X 10*6/uL Hgb 10.4 L (12.0-15.0) g/dL Hct 32.2 L (37.2-46.3) % Plt Count 481 H (140-440) X 10*3/uL MPV 9.4 L (9.5-12.2) FL Immature Gran # 0.06 H (0.00-0.04) X 10*3/uL Neutrophils # 11.61 H (1.80-7.70) X 10*3/uL Eosinophils # 0.03 L (0.04-0.35) X 10*3/uL Anion Gap 14.50 H (4.00-12.00) mmol/L Calcium 8.3 L (8.7-10.3) mg/dL Total Protein 5.5 L (6.2-8.2) g/dL Albumin 3.3 L (3.8-4.9) g/dL Albumin/Globulin Ratio 1.50 L (1.60-3.17) Ratio Assessment and Plan Assessment: Laparoscopic appendectomy converted to open ileocecectomy secondary to acute ruptured appendicitis with intra-abdominal abscess. Leukocytosis secondary to the above Fibromyalgia Hypertension Glaucoma Ongoing nicotine dependence Anxiety Depression Plan: Continue on current medication resume ,monitoring and symptomatic treatment. IV fluid hydration, antibiotics. Home meds have been reviewed and resumed accordingly. Aggressive pulmonary toileting with incentive spirometer ordered. Pain management and DVT prophylaxis as per general surgery. PPI in place for GI prophylaxis. Increase activity as tolerated/up in chair. Thank you for the consult. The impression and plan of care has been dictated as directed. : I performed a history and examination of this patient, discussed the same with the dictator. I agree with the dictator's note ,documented as a scribe. Any additional findings or plans will be noted.
[2024-02-08] MEDS: oxyCODONE-APAP 7.5-325MG 1 EACH TAB PO PRN (23:00)
[2024-02-09 08:23] LABS: Basophils # (A) 0.05 X 10*3/uL (0.00-0.10); Basophils % (A) 0.4 %; Eosinophils % (A) 1.5 %; HCT 30.6 % (37.2-46.3); HGB 9.6 g/dL (12.0-15.0); Lymphocytes # (A) 1.06 X 10*3/uL (0.90-5.00); Lymphocytes % (A) 7.8 %; MCH 30.8 pg (27.0-32.0); MCHC 31.4 g/dL (32.0-37.0); MCV 98.1 FL (80.0-97.0); Mean Platelet Volume 9.3 FL (9.5-12.2); Monocytes # (A) 0.84 X 10*3/uL (0.20-1.00); Monocytes % (A) 6.2 %; NRBC Per 100 WBC 0 X 10*3/uL (0.00-0.01); Neutrophils % (A) 83.5 %; Platelet Count 447 X 10*3/uL (140-440); RBC 3.12 X 10*6/uL (4.10-5.20); RDW 13.4 % (11.5-14.5); WBC 13.53 X 10*3/uL (4.50-10.00)
[2024-02-09 09:45] LABS: ALT 16 U/L (8-44); AST 21 U/L (13-35); Albumin 2.9 g/dL (3.8-4.9); Albumin/Globulin Ratio 1.53 Ratio (1.60-3.17); Alkaline Phosphatase 75 U/L (41-126); BUN/Creat Ratio 18.25 Ratio (12.00-20.00); Blood Urea Nitrogen 7.3 mg/dL (9.0-27.0); Calcium 7.9 mg/dL (8.7-10.3); Carbon Dioxide 20.9 mmol/L (21.6-31.8); Chloride 104 mmol/L (96-109); Globulin 1.9 g/dL (1.6-3.3); Glucose 74 mg/dL (70-110); Potassium 3.7 mmol/L (3.5-5.5); Sodium 139 mmol/L (135-145); Total Bilirubin 0.4 mg/dL (0.3-1.2); Total Protein 4.8 g/dL (6.2-8.2)
[2024-02-09] MEDS: KETOROLAC 15 MG/ML 1 ML VIAL IVP SCH (11:12)
--- NOTE | 2024-02-09 12:52 | P.PN ---
Subjective Progress Note Date: 02/09/24 CHIEF COMPLAINT: Ruptured appendix HISTORY OF PRESENT ILLNESS: Postop day #2 status post diagnostic laparoscopy converted to open ileocecectomy. Patient complaining of abdominal pain. She is having a lot of flatus. No bowel movement. She denies any nausea or vomiting. Afebrile. WBC 13.5 Hgb 9.6 platelets 447 PHYSICAL EXAM: VITAL SIGNS: Reviewed. GENERAL: no acute distress. ABDOMEN: Soft. Mildly distended. Incisional dressing clean dry and intact NEUROLOGIC: Alert and oriented. Cranial nerves II through XII grossly intact. ASSESSMENT: 1. Acute ruptured appendicitis with intra-abdominal abscess PLAN: -Robaxin added for pain management -Change Toradol to scheduled -Advance diet to clear liquids -Encourage patient to ambulate -Continue antibiotics -Repeat CBC in a.m. -GI prophylaxis Protonix and DVT prophylaxis subcu heparin Physician Harbor Master note has been reviewed by physician. Signing provider agrees with the documented findings, assessment, and plan of care. Objective - Vital Signs Vital signs: Vital Signs Temp 98.7 F 02/09/24 08:06 Pulse 93 02/09/24 08:06 Resp 17 02/09/24 08:06 BP 110/63 02/09/24 08:06 Pulse Ox 96 02/09/24 08:06 FiO2 Intake & Output 02/08/24 02/09/24 02/09/24 18:59 06:59 18:59 Output Total 235 10 Balance -235 -10 Output: Drainage 20 10 Abdomen 20 10 Urine 215 Uretheral ([place]) 215 Other: Voiding Method Toilet # Voids 2 1 - Labs CBC & Chem 7: 02/09/24 02:33 02/09/24 02:33 Labs: Abnormal Lab Results - Last 24 Hours (Table) 02/09/24 02/09/24 Range/Units 02:33 02:33 WBC 13.53 H (4.50-10.00) X 10*3/uL RBC 3.12 L (4.10-5.20) X 10*6/uL Hgb 9.6 L (12.0-15.0) g/dL Hct 30.6 L (37.2-46.3) % MCV 98.1 H (80.0-97.0) FL MCHC 31.4 L (32.0-37.0) g/dL Plt Count 447 H (140-440) X 10*3/uL MPV 9.3 L (9.5-12.2) FL Immature Gran # 0.08 H (0.00-0.04) X 10*3/uL Neutrophils # 11.30 H (1.80-7.70) X 10*3/uL Carbon Dioxide 20.9 L (21.6-31.8) mmol/L Anion Gap 14.10 H (4.00-12.00) mmol/L BUN 7.3 L (9.0-27.0) mg/dL Creatinine 0.4 L (0.6-1.5) mg/dL Calcium 7.9 L (8.7-10.3) mg/dL Total Protein 4.8 L (6.2-8.2) g/dL Albumin 2.9 L (3.8-4.9) g/dL Albumin/Globulin Ratio 1.53 L (1.60-3.17) Ratio
[2024-02-09] MEDS: methocarbamoL 500 MG TAB PO SCH (15:35)
--- NOTE | 2024-02-09 16:26 | P.PN ---
Subjective Progress Note Date: 02/09/24 -Consult/history of Present Illness 02/08/2024 This a 53-year-old female past medical history significant for fibromyalgia, hypertension, back pain, anxiety, depression, nicotine dependence presented to the ER with complaints of progressive right lower quadrant abdominal gas pain of 7 to 10 days accompanied by fevers.on admission, febrile, elevated WBC, CT imaging reported acute appendicitis with surrounding phlegmon and 1 or 2 small abscesses difficult to exclude, small amount of free fluid noted, probable hepatic hemangioma. Patient proceeded with diagnostic laparoscopy converted to open ileocecectomy secondary to acute ruptured appendicitis with intra-abdominal abscess. Pathology pending maintained on IV fluid hydration, antibiotics of Zosyn. blood pressures soft. Denies chest pain, palpitations or shortness of breath. Maintaining O2 sats in the 90s on room air. Positive pain -incisional site. Tolerating ice chips with no nausea or vomiting. Afebrile, WBC 13.29. Hemoglobin 10.4, platelets 481. Renal function stable. 02/09/2024 maintained on Zosyn.pain control improving .reports passing flatus. Denies nausea vomiting. Afebrile, WBC 13.53. Hemoglobin 9.6, platelets 447. Renal function stable, potassium 3.7, supplemented. Reports she ambulated in the hallway yesterday. Objective - Vital Signs Vital signs: Vital Signs Temp 98.8 F 02/09/24 12:46 Pulse 81 02/09/24 12:46 Resp 17 02/09/24 12:46 BP 109/60 02/09/24 12:46 Pulse Ox 91 L 02/09/24 12:46 FiO2 Intake & Output 02/08/24 02/09/24 02/09/24 18:59 06:59 18:59 Output Total 235 10 Balance -235 -10 Output: Drainage 20 10 Abdomen 20 10 Urine 215 Uretheral ([place]) 215 Other: Voiding Method Toilet # Voids 2 1 2 - Exam PHYSICAL EXAM: VITAL SIGNS: As above GENERAL: Alert and oriented x 3, sitting up in bed, no acute distress HEENT: Normocephalic, atraumatic ,conjunctivae normal. eyes normal. MMM. NECK: Supple, no JVD. No LNs CARDIOVASCULAR: S1, S2 regular.. No murmur RESPIRATION: Unlabored, equal air entry, breath sounds diminished in the bases. ABDOMEN: Soft, status post surgery, dressing clean dry and intact. LEGS: No edema. no swelling NERVOUS SYSTEM: Cranial N 2-12 grossly normal. No focal deficits. Strength and sensation grossly intact. Skin: Warm and dry, no rash - Labs CBC & Chem 7: 02/09/24 02:33 02/09/24 02:33 Labs: Abnormal Lab Results - Last 24 Hours (Table) 02/09/24 02/09/24 Range/Units 02:33 02:33 WBC 13.53 H (4.50-10.00) X 10*3/uL RBC 3.12 L (4.10-5.20) X 10*6/uL Hgb 9.6 L (12.0-15.0) g/dL Hct 30.6 L (37.2-46.3) % MCV 98.1 H (80.0-97.0) FL MCHC 31.4 L (32.0-37.0) g/dL Plt Count 447 H (140-440) X 10*3/uL MPV 9.3 L (9.5-12.2) FL Immature Gran # 0.08 H (0.00-0.04) X 10*3/uL Neutrophils # 11.30 H (1.80-7.70) X 10*3/uL Carbon Dioxide 20.9 L (21.6-31.8) mmol/L Anion Gap 14.10 H (4.00-12.00) mmol/L BUN 7.3 L (9.0-27.0) mg/dL Creatinine 0.4 L (0.6-1.5) mg/dL Calcium 7.9 L (8.7-10.3) mg/dL Total Protein 4.8 L (6.2-8.2) g/dL Albumin 2.9 L (3.8-4.9) g/dL Albumin/Globulin Ratio 1.53 L (1.60-3.17) Ratio Assessment and Plan Assessment: Laparoscopic appendectomy converted to open ileocecectomy secondary to acute ruptured appendicitis with intra-abdominal abscess. Leukocytosis secondary to the above Fibromyalgia Hypertension Glaucoma Ongoing nicotine dependence Anxiety Depression Plan: Continue on current medication resume ,monitoring and symptomatic treatment. Continue antibiotics. Pain management. aggressive pulmonary toileti ng with incentive spirometer reinforced. Diet advancement as per general surgery increase activity as tolerated/up in chair. The impression and plan of care has been dictated as directed. : I performed a history and examination of this patient, discussed the same with the dictator. I agree with the dictator's note ,documented as a scribe. Any additional findings or plans will be noted.
[2024-02-09] MEDS: POTASSIUM CHLORIDE ER 20 MEQ TAB.ER PO STA (16:40)
[2024-02-09] MEDS: HEPARIN SODIUM,PORCINE 5,000 UNIT/ML 1 ML VIAL SQ SCH (21:45)
[2024-02-10] MEDS ORDERED: MORPHINE SULFATE 4 MG/ML SYRINGE ONE (05:00)
[2024-02-10] MEDS ORDERED: KETOROLAC 15 MG/ML 1 ML VIAL ONE (05:00)
[2024-02-10] MEDS ORDERED: HYDROmorphone 1 MG/ML 1 ML SYRINGE ONE (05:00)
[2024-02-10] MEDS ORDERED: TRIAMCINOLONE 0.1% CREAM 80 GM TUBE TOPICAL PRN (08:37)
--- NOTE | 2024-02-10 08:37 | P.PN ---
Subjective Progress Note Date: 02/10/24 -Consult/history of Present Illness 02/08/2024 This a 53-year-old female past medical history significant for fibromyalgia, hypertension, back pain, anxiety, depression, nicotine dependence presented to the ER with complaints of progressive right lower quadrant abdominal gas pain of 7 to 10 days accompanied by fevers.on admission, febrile, elevated WBC, CT imaging reported acute appendicitis with surrounding phlegmon and 1 or 2 small abscesses difficult to exclude, small amount of free fluid noted, probable hepatic hemangioma. Patient proceeded with diagnostic laparoscopy converted to open ileocecectomy secondary to acute ruptured appendicitis with intra-abdominal abscess. Pathology pending maintained on IV fluid hydration, antibiotics of Zosyn. blood pressures soft. Denies chest pain, palpitations or shortness of breath. Maintaining O2 sats in the 90s on room air. Positive pain -incisional site. Tolerating ice chips with no nausea or vomiting. Afebrile, WBC 13.29. Hemoglobin 10.4, platelets 481. Renal function stable. 02/09/2024 maintained on Zosyn.pain control improving .reports passing flatus. Denies nausea vomiting. Afebrile, WBC 13.53. Hemoglobin 9.6, platelets 447. Renal function stable, potassium 3.7, supplemented. Reports she ambulated in the hallway yesterday. 02/10/2024 set up in chair yesterday, reports she ambulated as well, tolerated exertion well. Continues on Zosyn, afebrile. Labs pending. Tolerated full liquid diet yesterday with no nausea or vomiting. Diet has been advanced to soft this morning. Passing flatus, no bowel movement. Denies cough, congestion. Denies chest pain, palpitations or shortness of breath. Reports lessening pain. eager for discharge. Objective - Vital Signs Vital signs: Vital Signs Temp 98.4 F 02/10/24 07:02 Pulse 78 02/10/24 07:02 Resp 16 02/10/24 07:02 BP 104/70 02/10/24 07:02 Pulse Ox 97 02/10/24 07:02 FiO2 Intake & Output 02/09/24 02/10/24 02/10/24 18:59 06:59 18:59 Intake Total 1500 Output Total 20 Balance 1480 Intake: Intake, IV Titration 1500 Amount Lactated Ringers 1,000 ml 1500 @ 125 mls/hr IV .Q8H [facility] Rx#:[id number] Output: Drainage 20 Abdomen 20 Other: # Voids 3 4 1 - Exam PHYSICAL EXAM: VITAL SIGNS: As above GENERAL: Alert and oriented x 3, sitting up in bed, no acute distress HEENT: Normocephalic, atraumatic ,conjunctivae normal. eyes normal. MMM. NECK: Supple, no JVD. No LNs CARDIOVASCULAR: S1, S2 regular.. No murmur RESPIRATION: Unlabored, equal air entry, breath sounds diminished in the bases. ABDOMEN: Soft, status post surgery, dressing clean dry and intact. LEGS: Left lower extremity eczema, itchy in appearance, no redness or drainage. no edema. no swelling NERVOUS SYSTEM: Cranial N 2-12 grossly normal. No focal deficits. Strength and sensation grossly intact. Skin: Warm and dry, no rash - Labs CBC & Chem 7: 02/09/24 02:33 02/09/24 02:33 Labs: Abnormal Lab Results - Last 24 Hours (Table) 02/09/24 Range/Units 02:33 Carbon Dioxide 20.9 L (21.6-31.8) mmol/L Anion Gap 14.10 H (4.00-12.00) mmol/L BUN 7.3 L (9.0-27.0) mg/dL Creatinine 0.4 L (0.6-1.5) mg/dL Calcium 7.9 L (8.7-10.3) mg/dL Total Protein 4.8 L (6.2-8.2) g/dL Albumin 2.9 L (3.8-4.9) g/dL Albumin/Globulin Ratio 1.53 L (1.60-3.17) Ratio Assessment and Plan Assessment: Laparoscopic appendectomy converted to open ileocecectomy secondary to acute ruptured appendicitis with intra-abdominal abscess. Leukocytosis secondary to the above Fibromyalgia Hypertension Glaucoma Ongoing nicotine dependence Anxiety Depression Chronic eczema Plan: Continue on current medication resume ,monitoring and symptomatic treatment. Continue antibiotics. Cortisone cream for left lower extremity- patient has been itching at her chronic eczema. pain management. aggressive pulmonary toileting with incentive spirometer reinforced.increase activity as tolerated/up in chair. Patient is medically cleared for discharge, pending labs, able to tolerate diet advancement. Follow-up with PCP in 1 week. The impression and plan of care has been dictated as directed. : I performed a history and examination of this patient, discussed the same with the dictator. I agree with the dictator's note ,documented as a scribe. Any additional findings or plans will be noted.
[2024-02-10 11:02] LABS: ALT 15 U/L (8-44); AST 22 U/L (13-35); Albumin 2.8 g/dL (3.8-4.9); Albumin/Globulin Ratio 1.47 Ratio (1.60-3.17); Alkaline Phosphatase 75 U/L (41-126); BUN/Creat Ratio 9.25 Ratio (12.00-20.00); Blood Urea Nitrogen 3.7 mg/dL (9.0-27.0); Calcium 8.1 mg/dL (8.7-10.3); Carbon Dioxide 28.7 mmol/L (21.6-31.8); Chloride 103 mmol/L (96-109); Globulin 1.9 g/dL (1.6-3.3); Glucose 107 mg/dL (70-110); Potassium 4.7 mmol/L (3.5-5.5); Sodium 141 mmol/L (135-145); Total Bilirubin 0.2 mg/dL (0.3-1.2); Total Protein 4.7 g/dL (6.2-8.2)
[2024-02-10 11:06] LABS: Basophils # (A) 0.02 X 10*3/uL (0.00-0.10); Basophils % (A) 0.2 %; Eosinophils # (A) 0.42 X 10*3/uL (0.04-0.35); Eosinophils % (A) 3.6 %; HCT 29.6 % (37.2-46.3); HGB 9.6 g/dL (12.0-15.0); Lymphocytes # (A) 0.95 X 10*3/uL (0.90-5.00); Lymphocytes % (A) 8.1 %; MCH 30.7 pg (27.0-32.0); MCHC 32.4 g/dL (32.0-37.0); MCV 94.6 FL (80.0-97.0); Mean Platelet Volume 9.3 FL (9.5-12.2); Monocytes # (A) 0.78 X 10*3/uL (0.20-1.00); Monocytes % (A) 6.7 %; NRBC Per 100 WBC 0 X 10*3/uL (0.00-0.01); Neutrophils # (A) 9.44 X 10*3/uL (1.80-7.70); Neutrophils % (A) 80.9 %; Platelet Count 498 X 10*3/uL (140-440); RBC 3.13 X 10*6/uL (4.10-5.20); RDW 13.3 % (11.5-14.5); WBC 11.67 X 10*3/uL (4.50-10.00)
[2024-02-10] MEDS: bisacodyL 10 MG SUPP RECTAL STA (12:40)
--- NOTE | 2024-02-10 14:25 | P.PN ---
Subjective Progress Note Date: 02/10/24 CHIEF COMPLAINT: Ruptured appendix HISTORY OF PRESENT ILLNESS: Postop day #3 status post diagnostic laparoscopy converted to open ileocecectomy. Patient complains of abdominal pain. Pain is better controlled with the addition of the Robaxin. She is having flatus. Denies any bowel movement. She did report a little nausea this morning. She received regular diet for breakfast this morning. Afebrile. WBC is down from 13.5-11.6 hemoglobin 9.6 platelets 498. FLORA drain 20 mL serosanguineous output PHYSICAL EXAM: VITAL SIGNS: Reviewed. GENERAL: no acute distress. ABDOMEN: Soft. Mildly distended. Incisional dressing clean dry and intact. FLORA drain serosanguineous NEUROLOGIC: Alert and oriented. Cranial nerves II through XII grossly intact. ASSESSMENT: 1. Acute ruptured appendicitis with intra-abdominal abscess PLAN: -Continue pain management -Continue regular diet -Continue antibiotics -Encourage patient to ambulate in hallway -Dulcolax suppository ordered -GI prophylaxis Protonix and DVT prophylaxis subcu heparin Physician Bobbin Cleaner note has been reviewed by physician. Signing provider agrees with the documented findings, assessment, and plan of care. Objective - Vital Signs Vital signs: Vital Signs Temp 98.9 F 02/10/24 13:10 Pulse 91 02/10/24 13:10 Resp 17 02/10/24 13:10 BP 135/83 02/10/24 13:10 Pulse Ox 93 L 02/10/24 13:10 FiO2 Intake & Output 02/09/24 02/10/24 02/10/24 18:59 06:59 18:59 Intake Total 1500 Output Total 20 Balance 1480 Intake: Intake, IV Titration 1500 Amount Lactated Ringers 1,000 ml 1500 @ 125 mls/hr IV .Q8H [facility] Rx#:[id number] Output: Drainage 20 Abdomen 20 Other: # Voids 3 4 1 - Labs CBC & Chem 7: 02/10/24 06:31 02/10/24 06:31 Labs: Abnormal Lab Results - Last 24 Hours (Table) 02/10/24 02/10/24 Range/Units 06:31 06:31 WBC 11.67 H (4.50-10.00) X 10*3/uL RBC 3.13 L (4.10-5.20) X 10*6/uL Hgb 9.6 L (12.0-15.0) g/dL Hct 29.6 L (37.2-46.3) % Plt Count 498 H (140-440) X 10*3/uL MPV 9.3 L (9.5-12.2) FL Immature Gran # 0.06 H (0.00-0.04) X 10*3/uL Neutrophils # 9.44 H (1.80-7.70) X 10*3/uL Eosinophils # 0.42 H (0.04-0.35) X 10*3/uL BUN 3.7 L (9.0-27.0) mg/dL Creatinine 0.4 L (0.6-1.5) mg/dL BUN/Creatinine Ratio 9.25 L (12.00-20.00) Ratio Calcium 8.1 L (8.7-10.3) mg/dL Total Bilirubin 0.2 L (0.3-1.2) mg/dL Total Protein 4.7 L (6.2-8.2) g/dL Albumin 2.8 L (3.8-4.9) g/dL Albumin/Globulin Ratio 1.47 L (1.60-3.17) Ratio Assessment and Plan Assessment: pain control and monitor for bowel function Time with Patient: Less than 30
[2024-02-11 09:46] LABS: Basophils # (A) 0.04 X 10*3/uL (0.00-0.10); Basophils % (A) 0.4 %; Eosinophils # (A) 0.38 X 10*3/uL (0.04-0.35); Eosinophils % (A) 3.4 %; HCT 33.1 % (37.2-46.3); HGB 10.7 g/dL (12.0-15.0); Lymphocytes % (A) 7.1 %; MCHC 32.3 g/dL (32.0-37.0); MCV 95.9 FL (80.0-97.0); Mean Platelet Volume 9.4 FL (9.5-12.2); Monocytes # (A) 0.68 X 10*3/uL (0.20-1.00); NRBC Per 100 WBC 0 X 10*3/uL (0.00-0.01); Neutrophils # (A) 9.28 X 10*3/uL (1.80-7.70); Neutrophils % (A) 82.4 %; Platelet Count 585 X 10*3/uL (140-440); RBC 3.45 X 10*6/uL (4.10-5.20); RDW 13.6 % (11.5-14.5); WBC 11.26 X 10*3/uL (4.50-10.00)
[2024-02-11] MEDS: IOPAMIDOL CONTRAST (ORAL USE) VIAL PO PRN (14:22)
--- NOTE | 2024-02-11 14:59 | P.PN ---
Subjective Patient seen and evaluated at bedside. Patient still complaining of pain, denies nausea or vomiting at this time. Objective - Vital Signs Vital signs: Vital Signs Temp 97.7 F 02/11/24 13:54 Pulse 80 02/11/24 13:54 Resp 17 02/11/24 13:54 BP 113/77 02/11/24 13:54 Pulse Ox 93 L 02/11/24 13:54 FiO2 Intake & Output 02/10/24 02/11/24 02/11/24 18:59 06:59 18:59 Output Total 10 165 230 Balance -10 -165 -230 Output: Drainage 10 165 230 Abdomen 10 165 230 Other: # Voids 1 2 - Exam gen: nad cv: rrr pul: non labored breathing abd: soft, distended, tender to palpation, surgical incisions c/d/i, [place] drain serosang output - Labs CBC & Chem 7: 02/11/24 02:35 02/10/24 06:31 Labs: Abnormal Lab Results - Last 24 Hours (Table) 02/11/24 Range/Units 02:35 WBC 11.26 H (4.50-10.00) X 10*3/uL RBC 3.45 L (4.10-5.20) X 10*6/uL Hgb 10.7 L (12.0-15.0) g/dL Hct 33.1 L (37.2-46.3) % Plt Count 585 H (140-440) X 10*3/uL MPV 9.4 L (9.5-12.2) FL Immature Gran # 0.08 H (0.00-0.04) X 10*3/uL Neutrophils # 9.28 H (1.80-7.70) X 10*3/uL Lymphocytes # 0.80 L (0.90-5.00) X 10*3/uL Eosinophils # 0.38 H (0.04-0.35) X 10*3/uL Assessment and Plan Assessment: 53 yo female s/p ileocectomy -continue abx -continue pain meds -ctap discussed w/ family at length Time with Patient: Greater than 30
--- NOTE | 2024-02-11 15:29 | P.PN ---
Subjective Progress Note Date: 02/11/24 This a 53-year-old female past medical history significant for fibromyalgia, hypertension, back pain, anxiety, depression, nicotine dependence presented to the ER with complaints of progressive right lower quadrant abdominal gas pain of 7 to 10 days accompanied by fevers.on admission, febrile, elevated WBC, CT imaging reported acute appendicitis with surrounding phlegmon and 1 or 2 small abscesses difficult to exclude, small amount of free fluid noted, probable hepatic hemangioma. Patient proceeded with diagnostic laparoscopy converted to open ileocecectomy secondary to acute ruptured appendicitis with intra-abdominal abscess. Pathology pending maintained on IV fluid hydration, antibiotics of Zos yn. blood pressures soft. Denies chest pain, palpitations or shortness of breath. Maintaining O2 sats in the 90s on room air. Positive pain -incisional site. Tolerating ice chips with no nausea or vomiting. Afebrile, WBC 13.29. Hemoglobin 10.4, platelets 481. Renal function stable. 02/09/2024 maintained on Zosyn.pain control improving .reports passing flatus. Denies nausea vomiting. Afebrile, WBC 13.53. Hemoglobin 9.6, platelets 447. Renal function stable, potassium 3.7, supplemented. Reports she ambulated in the hallway yesterday. 02/10/2024 set up in chair yesterday, reports she ambulated as well, tolerated exertion well. Continues on Zosyn, afebrile. Labs pending. Tolerated full liquid diet yesterday with no nausea or vomiting. Diet has been advanced to soft this morning. Passing flatus, no bowel movement. Denies cough, congestion. Denies chest pain, palpitations or shortness of breath. Reports lessening pain. eager for discharge. 02/11/2024 Patient is evaluated today in follow up. Resting in bed. Reports abdominal pain of 7/10 today and sharp in nature also feels bloated. Not really passing gas. She is postoperative day #3 diagnostic exploratory lap with ileocectomy for a ruptured appendix with intraabdominal abscess. Continues on IV zosyn. Has been on a soft diet. Discussed with surgeon and plans for follow up abdominal pelvis CT done. Review of Systems Constitutional: Denied any fatigue denied any fever. Cardio vascular: denied any chest pain, palpitations Gastrointestinal: denied any nausea, vomiting, diarrhea, resports sharp 7/10 abdominal pain. Pulmonary: Denied any shortness of breath cough Neurologic denied any new focal deficits All inpatient medications were reviewed and appropriate changes in these medications as dictated in the interval history and assessment and plan. PHYSICAL EXAMINATION: GENERAL: The patient is alert and oriented x3, not in any acute distress. Well developed, well nourished. HEENT: Pupils are round and equally reacting to light. EOMI. No scleral icterus. No conjunctival pallor. Normocephalic, atraumatic. No pharyngeal erythema. No thyromegaly. CARDIOVASCULAR: S1 and S2 present. No murmurs, rubs, or gallops. PULMONARY: Chest is clear to auscultation, no wheezing or crackles. ABDOMEN: Soft, Hypoactive bowel sounds. No palpable organomegaly. Distended, tympanic. FLORA drain LLQ present. Midline dressing intact. MUSCULOSKELETAL: No joint swelling or deformity. EXTREMITIES: No cyanosis, clubbing, or pedal edema. NEUROLOGICAL: Gross neurological examination did not reveal any focal deficits. SKIN: No rashes. Left esteban has some excoriation. Assessment Laparoscopic appendectomy converted to open ileocecectomy secondary to acute ruptured appendicitis with intra-abdominal abscess. Leukocytosis secondary to the above Left esteban excoriation/rash Fibromyalgia Hypertension Glaucoma Ongoing nicotine dependence Anxiety Depression Chronic eczema GI prophylaxis DVT prophylaxis Plan Continue with kenalog cream to the left esteban twice a day Soft diet per surgery Add gas chews Encourage incentive spirometry Follow up abdominal pelvis CT today. Monitor CBC, BMP. The impression and plan of care has been dictated by Guera Peterson, Nurse Practitioner as directed. Dr. Prabha MD I have performed a history and physical examination and medical decision making of this patient, discussed the same with the dictator, and agree with the dictators assessment and plan as written, documented as a scribe. Based on total visit time, I have performed more than 50% of this visit. Objective - Vital Signs Vital signs: Vital Signs Temp 97.7 F 02/11/24 06:57 Pulse 65 02/11/24 06:57 Resp 16 02/11/24 06:57 BP 127/77 02/11/24 06:57 Pulse Ox 93 L 02/11/24 06:57 FiO2 Intake & Output 02/10/24 02/11/24 02/11/24 18:59 06:59 18:59 Output Total 10 165 120 Balance -10 -165 -120 Output: Drainage 10 165 120 Abdomen 10 165 120 Other: # Voids 1 2 - Labs CBC & Chem 7: 02/11/24 02:35 02/10/24 06:31 Labs: Abnormal Lab Results - Last 24 Hours (Table) 02/11/24 Range/Units 02:35 WBC 11.26 H (4.50-10.00) X 10*3/uL RBC 3.45 L (4.10-5.20) X 10*6/uL Hgb 10.7 L (12.0-15.0) g/dL Hct 33.1 L (37.2-46.3) % Plt Count 585 H (140-440) X 10*3/uL MPV 9.4 L (9.5-12.2) FL Immature Gran # 0.08 H (0.00-0.04) X 10*3/uL Neutrophils # 9.28 H (1.80-7.70) X 10*3/uL Lymphocytes # 0.80 L (0.90-5.00) X 10*3/uL Eosinophils # 0.38 H (0.04-0.35) X 10*3/uL Assessment and Plan Time with Patient: Less than 30
--- NOTE | 2024-02-11 16:23 | CT ---
EXAMINATION TYPE: CT abdomen pelvis w con CT DLP: 1063 mGycm, Automated exposure control for dose reduction was used. DATE OF EXAM: 02/11/2024 4:15 PM COMPARISON: CT abdomen pelvis most recent from 02/07/2024 CLINICAL INDICATION: Female, 53 years old with history of increasing abdominal pain; Increasing abdom inal pain TECHNIQUE: Axial CT abdomen pelvis w con;Sagittal and coronal reformats were created on a separate w orkstation. Contrast used:100ml mL of Isovue 300 with IV Contrast, (none if empty) Oral contrast used: with Oral Contrast (none if empty) FINDINGS: LOWER CHEST: Trace bilateral pleural effusions. ABDOMEN LIVER: Indeterminate obscuration the left hepatic lobe measuring 41 x 35 mm. GALLBLADDER AND BILE DUCTS: Unremarkable. PANCREAS: Unremarkable. SPLEEN: Unremarkable. ADRENAL GLANDS: Unremarkable. KIDNEYS AND URETERS: No evidence of hydronephrosis or renal calculus. The ureters are unremarkable. PELVIS BLADDER: Foci of gas within the bladder lumen. REPRODUCTIVE: Unremarkable. ABDOMEN & PELVIS STOMACH AND BOWEL: There is dilation of the left upper quadrant bowel to 35 mm with relative nondiste ntion in the right lower quadrant in the area of surgical intervention. Transition point not well mikey reciated. PERITONEUM/RETROPERITONEUM: No evidence of pneumoperitoneum or free fluid. VASCULATURE: No evidence of aortic aneurysm. MUSCULOSKELETAL: No acute osseous abnormalities LYMPH NODES: No gross evidence for lymphadenopathy. SOFT TISSUE/ABDOMINAL WALL: Frankie-Dorantes drainage tube terminating in the mid abdomen. Minimal fluid around the drainage catheter. Post surgical changes of the colon. Dilated loops of small bowel throu ghout the abdomen measuring up to 35 mm. No definitive IMPRESSION: 1. Surgical changes with Frankie-Dorantes drain layering in the low abdomen. Dilated loops of small bow el throughout the abdomen correlate for ileus versus obstruction. Consider dedicated small bowel foll ow-through to ensure patency. 2. Indeterminate lesion in left hepatic lobe further evaluation with liver mass protocol MRI recomme nded. [facility], , 02/11/2024 4:21 PM
[2024-02-11] MEDS: SIMETHICONE 80 MG CHEWABLE PO SCH (16:40)
[2024-02-11] MEDS: TRIAMCINOLONE 0.1% CREAM 80 GM TUBE TOPICAL SCH (16:40)
[2024-02-12 09:15] LABS: Basophils # (A) 0.02 X 10*3/uL (0.00-0.10); Basophils % (A) 0.3 %; Eosinophils # (A) 0.45 X 10*3/uL (0.04-0.35); Eosinophils % (A) 5.9 %; HCT 29.9 % (37.2-46.3); HGB 9.6 g/dL (12.0-15.0); Lymphocytes # (A) 0.75 X 10*3/uL (0.90-5.00); Lymphocytes % (A) 9.8 %; MCH 30.2 pg (27.0-32.0); MCHC 32.1 g/dL (32.0-37.0); Mean Platelet Volume 8.9 FL (9.5-12.2); Monocytes # (A) 0.62 X 10*3/uL (0.20-1.00); Monocytes % (A) 8.1 %; NRBC Per 100 WBC 0 X 10*3/uL (0.00-0.01); Neutrophils # (A) 5.72 X 10*3/uL (1.80-7.70); Neutrophils % (A) 74.7 %; Platelet Count 547 X 10*3/uL (140-440); RBC 3.18 X 10*6/uL (4.10-5.20); RDW 13.4 % (11.5-14.5); WBC 7.65 X 10*3/uL (4.50-10.00)
[2024-02-12 09:29] LABS: BUN/Creat Ratio <7.00 Ratio (12.00-20.00); Blood Urea Nitrogen <3.5 mg/dL (9.0-27.0); Calcium 8.2 mg/dL (8.7-10.3); Carbon Dioxide 26.2 mmol/L (21.6-31.8); Chloride 104 mmol/L (96-109); Glucose 100 mg/dL (70-110); Magnesium 1.7 mg/dL (1.5-2.4); Sodium 140 mmol/L (135-145)
[2024-02-12] MEDS ORDERED: Magnesium Replacement Protocol 1 EACH MISC MISCELLANE PRN (09:51)
[2024-02-12] MEDS: MAGNESIUM SULFATE-D5W PMX 1 GM in DEXTROSE/WATER 1 100ML.BAG IVPB ONE (11:18)
--- NOTE | 2024-02-12 22:26 | P.PN ---
Subjective Progress Note Date: 02/12/24 This a 53-year-old female past medical history significant for fibromyalgia, hypertension, back pain, anxiety, depression, nicotine dependence presented to the ER with complaints of progressive right lower quadrant abdominal gas pain of 7 to 10 days accompanied by fevers.on admission, febrile, elevated WBC, CT imaging reported acute appendicitis with surrounding phlegmon and 1 or 2 small abscesses difficult to exclude, small amount of free fluid noted, probable hepatic hemangioma. Patient proceeded with diagnostic laparoscopy converted to open ileocecectomy secondary to acute ruptured appendicitis with intra-abdominal abscess. Pathology pending maintained on IV fluid hydration, antibiotics of Zos yn. blood pressures soft. Denies chest pain, palpitations or shortness of breath. Maintaining O2 sats in the 90s on room air. Positive pain -incisional site. Tolerating ice chips with no nausea or vomiting. Afebrile, WBC 13.29. Hemoglobin 10.4, platelets 481. Renal function stable. 02/09/2024 maintained on Zosyn.pain control improving .reports passing flatus. Denies nausea vomiting. Afebrile, WBC 13.53. Hemoglobin 9.6, platelets 447. Renal function stable, potassium 3.7, supplemented. Reports she ambulated in the hallway yesterday. 02/10/2024 set up in chair yesterday, reports she ambulated as well, tolerated exertion well. Continues on Zosyn, afebrile. Labs pending. Tolerated full liquid diet yesterday with no nausea or vomiting. Diet has been advanced to soft this morning. Passing flatus, no bowel movement. Denies cough, congestion. Denies chest pain, palpitations or shortness of breath. Reports lessening pain. eager for discharge. 02/11/2024 Patient is evaluated today in follow up. Resting in bed. Reports abdominal pain of 7/10 today and sharp in nature also feels bloated. Not really passing gas. She is postoperative day #3 diagnostic exploratory lap with ileocectomy for a ruptured appendix with intraabdominal abscess. Continues on IV zosyn. Has been on a soft diet. Discussed with surgeon and plans for follow up abdominal pelvis CT done. 02/12/2024 Patient is evaluated today resting in bed. Has reported improvement in the abdominal pain somewhat since yesterday and has had a few loose bowel movements. Repeat abdominal pelvis CT reveals ileus vs. SBO, awaiting review from surgery. Patient is postoperative day #4 diagnosis exploratory lap with ileocecectomy. Patient remains on IV zosyn. White blood cell count today 7.65, hgb 9.6, BUN <3.5, creatinine 0.5, magnesium 1.7, potassium 4.0. Review of Systems Constitutional: Denied any fatigue denied any fever. Cardio vascular: denied any chest pain, palpitations Gastrointestinal: denied any nausea, vomiting, diarrhea, resports sharp 7/10 abdominal pain. Pulmonary: Denied any shortness of breath cough Neurologic denied any new focal deficits All inpatient medications were reviewed and appropriate changes in these medications as dictated in the interval history and assessment and plan. PHYSICAL EXAMINATION: GENERAL: The patient is alert and oriented x3, not in any acute distress. Well developed, well nourished. HEENT: Pupils are round and equally reacting to light. EOMI. No scleral icterus. No conjunctival pallor. Normocephalic, atraumatic. No pharyngeal erythema. No thyromegaly. CARDIOVASCULAR: S1 and S2 present. No murmurs, rubs, or gallops. PULMONARY: Chest is clear to auscultation, no wheezing or crackles. ABDOMEN: Soft, Hypoactive bowel sounds. No palpable organomegaly. Distended, tympanic. FLORA drain LLQ present. Midline dressing intact. MUSCULOSKELETAL: No joint swelling or deformity. EXTREMITIES: No cyanosis, clubbing, or pedal edema. NEUROLOGICAL: Gross neurological examination did not reveal any focal deficits. SKIN: No rashes. Left esteban has some excoriation. Assessment Laparoscopic appendectomy converted to open ileocecectomy secondary to acute ruptured appendicitis with intra-abdominal abscess. Leukocytosis secondary to the above Left esteban excoriation/rash Fibromyalgia Hypertension Glaucoma Ongoing nicotine dependence Anxiety Depression Chronic eczema GI prophylaxis DVT prophylaxis Plan Continue with kenalog cream to the left esteban twice a day Soft diet per surgery Add gas chews Encourage incentive spirometry Follow up abdominal pelvis CT today ileus vs. SBO pending further recommendations from surgery. Monitor CBC, BMP. The impression and plan of care has been dictated by Guera Peterson, Nurse Practitioner as directed. Dr. Prabha MD I have performed a history and physical examination and medical decision making of this patient, discussed the same with the dictator, and agree with the dictators assessment and plan as written, documented as a scribe. Based on total visit time, I have performed more than 50% of this visit. Objective - Vital Signs Vital signs: Vital Signs Temp 98.7 F 02/12/24 06:40 Pulse 83 02/12/24 06:40 Resp 17 02/12/24 06:40 BP 106/63 02/12/24 06:40 Pulse Ox 96 02/12/24 06:40 FiO2 Intake & Output 02/11/24 02/12/24 02/12/24 18:59 06:59 18:59 Output Total 565 240 Balance -565 -240 Output: Drainage 565 240 Abdomen 565 240 Other: # Voids 1 1 # Bowel Movements 1 - Labs CBC & Chem 7: 02/12/24 03:29 02/12/24 03:29 Labs: Abnormal Lab Results - Last 24 Hours (Table) 02/12/24 02/12/24 Range/Units 03:29 03:29 RBC 3.18 L (4.10-5.20) X 10*6/uL Hgb 9.6 L (12.0-15.0) g/dL Hct 29.9 L (37.2-46.3) % Plt Count 547 H (140-440) X 10*3/uL MPV 8.9 L (9.5-12.2) FL Immature Gran # 0.09 H (0.00-0.04) X 10*3/uL Lymphocytes # 0.75 L (0.90-5.00) X 10*3/uL Eosinophils # 0.45 H (0.04-0.35) X 10*3/uL BUN <3.5 L (9.0-27.0) mg/dL Creatinine 0.5 L (0.6-1.5) mg/dL BUN/Creatinine Ratio <7.00 L (12.00-20.00) Ratio Calcium 8.2 L (8.7-10.3) mg/dL Assessment and Plan Time with Patient: Less than 30
[2024-02-13 10:11] LABS: Basophils % (A) 0 %; Eosinophils # (A) 0.3 k/uL (0-0.7); Eosinophils % (A) 3 %; HCT 32.5 % (34.0-46.0); HGB 10.1 gm/dL (11.4-16.0); Hypochromasia Slight; Lymphocytes # (A) 0.7 k/uL (1.0-4.8); Lymphocytes % (A) 8 %; MCH 29.8 pg (25.0-35.0); MCHC 30.9 g/dL (31.0-37.0); MCV 96.4 fL (80.0-100.0); Monocytes # (A) 0.6 k/uL (0-1.0); Monocytes % (A) 6 %; Neutrophils # (A) 7.4 k/uL (1.3-7.7); Neutrophils % (A) 81 %; Platelet Count 617 k/uL (150-450); RBC 3.37 m/uL (3.80-5.40); RDW 13.4 % (11.5-15.5); WBC 9.2 k/uL (3.8-10.6)
[2024-02-13 10:30] LABS: African American GFR (CKD) >90 (>60 ml/min/1.73 sqM); Anion Gap 3 mmol/L; Blood Urea Nitrogen 2 mg/dL (7-17); Calcium 8.4 mg/dL (8.4-10.2); Carbon Dioxide 30 mmol/L (22-30); Chloride 107 mmol/L (98-107); Glucose 109 mg/dL (74-99); Non-African American GFR(CKD) >90 (>60 ml/min/1.73 sqM); Potassium 4.1 mmol/L (3.5-5.1); Sodium 140 mmol/L (137-145)
--- NOTE | 2024-02-13 14:23 | P.PN ---
Subjective Progress Note Date: 02/13/24 CHIEF COMPLAINT: Ruptured appendix HISTORY OF PRESENT ILLNESS: Postop day #6 status post diagnostic laparoscopy converted to open ileocecectomy. Patient reports that she is feeling better today. She is tolerating soft diet. She is having bowel movements and flatus. She had a CT scan yesterday due to continuous abdominal pain findings reported ileus versus bowel obstruction and indeterminate liver lesion. She denies any nausea or vomiting. She did have a fever of 102.6 last night. Afebrile this a.m. WBC normal at 9.2 hemoglobin 10.1. FLORA drain 15 mL serous fluid PHYSICAL EXAM: VITAL SIGNS: Reviewed. GENERAL: no acute distress. ABDOMEN: Soft. Mildly distended. Incisional dressing clean dry and intact. FLORA drain serous fluid NEUROLOGIC: Alert and oriented. Cranial nerves II through XII grossly intact. ASSESSMENT: 1. Acute ruptured appendicitis with intra-abdominal abscess PLAN: -Encourage patient to ambulate and use incentive spirometer. Possible atelectasis contributing to her fever -Possible discharge tomorrow if pain is controlled and afebrile -Continue pain management -Continue regular diet -Continue antibiotics -GI prophylaxis Protonix and DVT prophylaxis subcu heparin Physician [employer] note has been reviewed by physician. Signing provider agrees with the documented findings, assessment, and plan of care. Objective - Vital Signs Vital signs: Vital Signs Temp 98.8 F 02/13/24 06:59 Pulse 81 02/13/24 08:13 Resp 16 02/13/24 08:13 BP 111/71 02/13/24 06:59 Pulse Ox 95 02/13/24 06:59 FiO2 Intake & Output 02/12/24 02/13/24 02/13/24 18:59 06:59 18:59 Output Total 80 25 Balance -80 -25 Output: Drainage 80 25 Abdomen 80 25 Other: Voiding Method Toilet # Voids 2 5 - Labs CBC & Chem 7: 02/13/24 08:46 02/13/24 08:46 Labs: Abnormal Lab Results - Last 24 Hours (Table) 02/13/24 02/13/24 Range/Units 08:46 08:46 RBC 3.37 L (3.80-5.40) m/uL Hgb 10.1 L (11.4-16.0) gm/dL Hct 32.5 L (34.0-46.0) % MCHC 30.9 L (31.0-37.0) g/dL Plt Count 617 H (150-450) k/uL Lymphocytes # 0.7 L (1.0-4.8) k/uL BUN 2 L (7-17) mg/dL Creatinine 0.43 L (0.52-1.04) mg/dL Glucose 109 H (74-99) mg/dL
--- NOTE | 2024-02-13 16:18 | P.PN ---
Subjective Progress Note Date: 02/13/24 -Consult/history of Present Illness 02/08/2024 This a 53-year-old female past medical history significant for fibromyalgia, hypertension, back pain, anxiety, depression, nicotine dependence presented to the ER with complaints of progressive right lower quadrant abdominal gas pain of 7 to 10 days accompanied by fevers.on admission, febrile, elevated WBC, CT imaging reported acute appendicitis with surrounding phlegmon and 1 or 2 small abscesses difficult to exclude, small amount of free fluid noted, probable hepatic hemangioma. Patient proceeded with diagnostic laparoscopy converted to open ileocecectomy secondary to acute ruptured appendicitis with intra-abdominal abscess. Pathology pending maintained on IV fluid hydration, antibiotics of Zosyn. blood pressures soft. Denies chest pain, palpitations or shortness of breath. Maintaining O2 sats in the 90s on room air. Positive pain -incisional site. Tolerating ice chips with no nausea or vomiting. Afebrile, WBC 13.29. Hemoglobin 10.4, platelets 481. Renal function stable. 02/09/2024 maintained on Zosyn.pain control improving .reports passing flatus. Denies nausea vomiting. Afebrile, WBC 13.53. Hemoglobin 9.6, platelets 447. Renal function stable, potassium 3.7, supplemented. Reports she ambulated in the hallway yesterday. 02/10/2024 set up in chair yesterday, reports she ambulated as well, tolerated exertion well. Continues on Zosyn, afebrile. Labs pending. Tolerated full liquid diet yesterday with no nausea or vomiting. Diet has been advanced to soft this morning. Passing flatus, no bowel movement. Denies cough, congestion. Denies chest pain, palpitations or shortness of breath. Reports lessening pain. eager for discharge. 02/13/2024 tolerating soft diet, denies nausea or vomiting .positive flatus, positive bowel movement. positive abdominal pain yesterday, CT performed sugg esting possible ileus versus bowel obstruction and indeterminate left hepatic lobe lesion.Tmax 102.6, normal WBC. Hemoglobin 10.1, platelets 617, electrolytes and renal function stable. Objective - Vital Signs Vital signs: Vital Signs Temp 98.8 F 02/13/24 06:59 Pulse 81 02/13/24 08:13 Resp 16 09/30/24 08:13 BP 111/71 02/13/24 06:59 Pulse Ox 95 02/13/24 06:59 FiO2 Intake & Output 02/12/24 02/13/24 02/13/24 18:59 06:59 18:59 Output Total 80 25 Balance -80 -25 Output: Drainage 80 25 Abdomen 80 25 Other: Voiding Method Toilet # Voids 2 5 - Exam PHYSICAL EXAM: VITAL SIGNS: As above GENERAL: Alert and oriented x 3, sitting up in bed, no acute distress HEENT: Normocephalic, atraumatic ,conjunctivae normal. eyes normal. MMM. NECK: Supple, no JVD. No LNs CARDIOVASCULAR: S1, S2 regular.. No murmur RESPIRATION: Unlabored, equal air entry, breath sounds diminished in the bases. ABDOMEN: Soft, status post surgery, dressing clean dry and intact. FLORA with serous drainage. LEGS: Left lower extremity eczema, itchy in appearance, no redness or drainage. no edema. no swelling NERVOUS SYSTEM: Cranial N 2-12 grossly normal. No focal deficits. Strength and sensation grossly intact. Skin: Warm and dry, no rash - Labs CBC & Chem 7: 02/13/24 08:46 02/13/24 08:46 Labs: Abnormal Lab Results - Last 24 Hours (Table) 02/13/24 02/13/24 Range/Units 08:46 08:46 RBC 3.37 L (3.80-5.40) m/uL Hgb 10.1 L (11.4-16.0) gm/dL Hct 32.5 L (34.0-46.0) % MCHC 30.9 L (31.0-37.0) g/dL Plt Count 617 H (150-450) k/uL Lymphocytes # 0.7 L (1.0-4.8) k/uL BUN 2 L (7-17) mg/dL Creatinine 0.43 L (0.52-1.04) mg/dL Glucose 109 H (74-99) mg/dL Assessment and Plan Assessment: Laparoscopic appendectomy converted to open ileocecectomy secondary to acute ruptured appendicitis with intra-abdominal abscess. Leukocytosis secondary to the above, resolved Postoperative atelectasis, expected outcome Fibromyalgia Hypertension Glaucoma Ongoing nicotine dependence Anxiety Depression Chronic eczema Plan: Continue on current medication resume ,monitoring and symptomatic treatment. Maintain antibiotics. Pain management as per general surgery-wean off Dilaudid. Continue aggressive pulmonary toileting with incentive spirometer reinforced.increase activity as tolerated/up in chair. Discharge planning in progress for tomorrow as per general surgery, pending controlled pain and fevers. The impression and plan of care has been dictated as directed. : I performed a history and examination of this patient, discussed the same with the dictator. I agree with the dictator's note ,documented as a scribe. Any additional findings or plans will be noted.
[2024-02-14 08:24] VITALS: BP 148/82; PULSE 77; RESP 17; TEMP 98.6
--- NOTE | 2024-02-14 12:25 | P.DS ---
Providers Date of admission: 02/07/24 15:15 Expected date of discharge: 02/14/24 Attending physician: Daria Pickens DO Consults: 02/07/24 15:52 Consult Physician Routine Consulting Provider: Ky Mcdonald Consult Reason/Comments: Med mgmt, Pt known to practice Do you want consulting provider notified?: Yes Primary care physician: Ky Mcdonald Hospital Course: Discharge diagnosis 1. Acute ruptured appendicitis with intra-abdominal abscess Hospital course This is a 53-year-old female who presented with right lower quadrant abdominal pain. CT scan abdomen pelvis performed with concern for appendicitis with phlegmon. Patient is status post diagnostic laparoscopy converted to open ileocecectomy for an acute ruptured appendicitis with intra-abdominal abscess. Patient's pain is controlled. She is tolerating diet. She is having bowel movements. She is ambulating. She is afebrile. She is stable for discharge. Patient will be discharged home with oral antibiotics. Please refer to chart for any further details. Physician [employer] note has been reviewed by physician. Signing provider agrees with the documented findings, assessment, and plan of care. Patient Condition at Discharge: Stable Plan - Discharge Summary Discharge Rx Participant: Yes New Discharge Prescriptions: New Amoxic-Pot Clav 875-125Mg [Augmentin 875-125] 1 tab PO Q12HR 7 Days #14 tab oxyCODONE HCL/ACETAMINOPHEN [Percocet 7.5-325 mg] 1 tab PO Q6HR PRN 3 Days #12 tab PRN Reason: Pain Continue Baclofen [Lioresal] 10 mg PO TID PRN PRN Reason: Muscle Spasm Pregabalin [Lyrica] 150 mg PO TID Atorvastatin Calcium [Lipitor] 10 mg PO HS Pantoprazole Sodium [Protonix] 40 mg PO BID #60 tab Vitamin C(Unknown Dose) 1 tab PO DAILY Losartan [Cozaar] 25 mg PO DAILY QUEtiapine [SEROquel] 50 mg PO HS PRN PRN Reason: Insomnia Metoprolol Succinate [Toprol XL] 25 mg PO HS [id number] [Excedrin] 1 tab PO Q4HR PRN PRN Reason: Migraine Headache DULoxetine HCL [Cymbalta] 20 mg PO DAILY Latanoprost [Latanoprost 0.005%] 1 drop BOTH EYES HS Discontinued oxyCODONE-APAP 7.5-325MG [Percocet 7.5-325 mg] 1 tab PO BID Discharge Medication List Baclofen [Lioresal] 10 mg PO TID PRN 06/04/14 [History] Atorvastatin Calcium [Lipitor] 10 mg PO HS 03/31/21 [History] Metoprolol Succinate [Toprol XL] 25 mg PO HS 03/31/21 [History] Pregabalin [Lyrica] 150 mg PO TID 03/31/21 [History] Pantoprazole Sodium [Protonix] 40 mg PO BID #60 tab 04/01/21 [Rx] Ddyljct-Ltgz-Vvax [id number] [Excedrin] 1 tab PO Q4HR PRN 02/07/24 [History] DULoxetine HCL [Cymbalta] 20 mg PO DAILY 02/07/24 [History] Latanoprost [Latanoprost 0.005%] 1 drop BOTH EYES HS 02/07/24 [History] Losartan [Cozaar] 25 mg PO DAILY 02/07/24 [History] QUEtiapine [SEROquel] 50 mg PO HS PRN 02/07/24 [History] Vitamin C(Unknown Dose) 1 tab PO DAILY 02/07/24 [History] Amoxic-Pot Clav 875-125Mg [Augmentin 875-125] 1 tab PO Q12HR 7 Days #14 tab 02/14/24 [Rx] oxyCODONE HCL/ACETAMINOPHEN [Percocet 7.5-325 mg] 1 tab PO Q6HR PRN 3 Days #12 tab 02/14/24 [Rx] Follow up Appointment(s)/Referral(s): Marcos Jones DO [STAFF PHYSICIAN] - 1-2 days Daria Pickens DO [Doctor of Osteopathic Medicine] - 1 Week Patient Instructions/Handouts: Open Appendectomy (DC) Activity/Diet/Wound Care/Special Instructions: No driving while taking Percocet No lifting over 10 pounds You may shower. No soaking or tub baths for 2 weeks Very light activity until you are reevaluated at your follow up appointment with your surgeon Keep a log of FLORA drain output and bring with you to your follow-up appointment Milk/strip drains 2-3 times a day Discharge Disposition: HOME SELF-CARE
== END 2024-02-14 13:56 | disposition home or self-care (01) | DRG 330 ==
LOC: EC 11:56 → 4SSUR 15:15
PROVIDERS: ADMIT Surgery; ATTEND Surgery
PROC: 0DTH0ZZ Resection of Cecum, Open Approach (ICD-10-PCS; 2024-02-07)
PROC: 0WJG4ZZ Inspection of Peritoneal Cavity, Percutaneous Endoscopic Approach (ICD-10-PCS; 2024-02-07)
PROC: 0DTJ0ZZ Resection of Appendix, Open Approach (ICD-10-PCS; principal; 2024-02-07 13:35)
DX: K35.33 Acute appendicitis with perforation, localized peritonitis, and gangrene, with abscess (principal); J98.11 Atelectasis; F32.A Depression, unspecified; I10 Essential (primary) hypertension; K76.9 Liver disease, unspecified; F17.200 Nicotine dependence, unspecified, uncomplicated; F41.9 Anxiety disorder, unspecified; H40.9 Unspecified glaucoma; L30.9 Dermatitis, unspecified; M79.7 Fibromyalgia; Z53.31 Laparoscopic surgical procedure converted to open procedure; Z79.899 Other long term (current) drug therapy; Z88.5 Allergy status to narcotic agent
CPT/HCPCS: 36415; 74177; 80048; 80053; 82150; 83605; 83690; 83735; 84703; 85025; 88307; 96365; 96375; 99285